=== PATIENT | male | born 1955 | race Caucasian/White ===

== ENCOUNTER 2017-02-01 10:37 | Observation (INO) | payer BC ==
[~2017-02-01] VITALS: Ht 175.3 cm; Wt 63.1 kg
[2017-02-01] MEDS ORDERED: BUPIVACAINE/EPINEPHRINE 0.25% PF 30 ML VIAL ONE ×2 (11:46→14:30)
[2017-02-01] MEDS ORDERED: LACTCAP8 PO (11:47)
[2017-02-01] MEDS ORDERED: FOLI400T PO (11:47)
[2017-02-01] MEDS ORDERED: MONT10TA4 PO (11:47)
[2017-02-01] MEDS ORDERED: ROFL1TAB2 PO (11:47)
[2017-02-01] MEDS ORDERED: OXYGENDME NAS.CANULA (11:47)
[2017-02-01] MEDS ORDERED: ALBUAER3 INH (11:47)
[2017-02-01] MEDS ORDERED: VITA200013 P-ARTICULR (11:47)
[2017-02-01] MEDS ORDERED: FLUT1SPR5 EACH NARE (11:47)
[2017-02-01] MEDS ORDERED: SYMB160A INH (11:47)
[2017-02-01] MEDS ORDERED: TIOT12.9 INH (11:47)
[2017-02-01] MEDS ORDERED: CENTCHW3 PO (11:47)
[2017-02-01] MEDS ORDERED: ATOR40TA16 PO (11:47)
[2017-02-01] MEDS ORDERED: ASPI81CH6 CHEW (11:47)
[2017-02-01] MEDS ORDERED: BUPR150T3 PO (11:47)
[2017-02-01] MEDS ORDERED: IPRASOL INH (11:47)
[2017-02-01] MEDS ORDERED: METO25TA3 PO (11:47)
[2017-02-01] MEDS ORDERED: POVIDONE IODINE 5% (ANTISEPSIS KIT) 4 APPLICATIONS EACH NARE PRN (12:00)
[2017-02-01] MEDS ORDERED: PROPOFOL 200 MG/20 ML AMP IV ONE (12:00)
[2017-02-01] MEDS ORDERED: CHLORHEXIDINE GLUCONATE 2 % 1 PACK (2 CLOTHS) TOPICAL PRN (12:00)
[2017-02-01] MEDS ORDERED: LIDOCAINE HCL 1% PF 5 ML SYRINGE OTHER ONE (12:00)
[2017-02-01] MEDS ORDERED: ceFAZolin 2 GM PREMIX 50 ML IV SCH (12:00)
[2017-02-01] MEDS ORDERED: LACTATED RINGER'S 1000 ML IV PRN (12:00)
[2017-02-01] MEDS ORDERED: ONDANSETRON HCL 4 MG/2 ML VIAL IV PUSH ONE (12:00)
[2017-02-01] MEDS ORDERED: PHENYLEPH/NS 1000 MCG/10 ML SYR IV ONE (12:00)
[2017-02-01] MEDS ORDERED: METOPROLOL TARTRATE 25 MG TAB PO PRN (12:00)
[2017-02-01] MEDS ORDERED: SODIUM CHLORID 0.9% 500 ML IV PRN (12:00)
[2017-02-01] MEDS ORDERED: DEXAMETHASONE SOD PHOS 4 MG/ML VIAL IV ONE (12:00)
[2017-02-01] MEDS ORDERED: GLYCOPYRROLATE 1 MG/5 ML SYRINGE IV PUSH ONE (12:00)
[2017-02-01] MEDS ORDERED: NEOSTIGMINE 5 MG/5 ML SYRINGE IV PUSH ONE (12:00)
[2017-02-01] MEDS ORDERED: ROCURONIUM INJ 50 MG/5 ML SYRINGE IV PUSH ONE (12:00)
[2017-02-01] MEDS ORDERED: ceFAZolin INJ 1,000 MG VIAL IV ONE (12:00)
[2017-02-01] MEDS ORDERED: ePHEDrine/NS 25 MG/5 ML SYRINGE IV ONE (12:00)
[2017-02-01] MEDS ORDERED: STERILE WATER FOR INJECTION 20 ML VIAL ONE (12:04)
[2017-02-01] MEDS ORDERED: methylPREDNISolone SOD SUCC 125 MG/2 ML VIAL ONE (12:30)
--- NOTE | 2017-02-01 13:39 | EKG ---
Date Performed: 02/01/2017 Time Performed: 11:26:23 PTAGE: 62 years EKG: Sinus rhythm POSSIBLE RIGHT ATRIAL ENLARGEMENT BORDERLINE ECG NO PREVIOUS TRACING DOCTOR: Kory Hannah Interpretating Date/Time 02/01/2017 13:39:03
[2017-02-01] MEDS ORDERED: DO NOT ADM ANY ANTICOAGULANT DRUGS PRN (15:03)
[2017-02-01] MEDS ORDERED: ONDANSETRON HCL 4 MG/2 ML VIAL IV PUSH PRN (15:15)
[2017-02-01] MEDS ORDERED: ACETAMINOPHEN/HYDROcodone 325 MG/5 MG TAB PO PRN (15:15)
[2017-02-01] MEDS ORDERED: ALBUTEROL SULFATE 90 MCG/ACT HFA 8 GM INHALER INH PRN (15:15)
[2017-02-01] MEDS ORDERED: SODIUM CHLORIDE 0.9% FLUSH 10 ML FLUSH IV FLUSH PRN (15:15)
[2017-02-01] MEDS ORDERED: Post-op Orders (for Pharmacy) XX ONE (15:15)
[2017-02-01] MEDS ORDERED: *MEPERIDINE 25 MG INJ VIAL PERIprocedural Use ONLY ONE (15:17)
[2017-02-01] MEDS ORDERED: RESP: ALBUTEROL 2.5 MG/IPRATROPIUM 0.5 MG NEB (PRN) NEB (15:30)
[2017-02-01] MEDS ORDERED: MORPHINE SULFATE 2 MG/ML INJ IV PUSH PRN (15:30)
[2017-02-01] MEDS: ATORVASTATIN 40 MG TAB PO SCH (15:30)
[2017-02-01] MEDS: SODIUM CHLOR 0.9% 1000 ML INJ 1,000 ML IV SCH (15:57)
[2017-02-01 16:00] VITALS: BP 98/70; PULSE 75; RESP 17; TEMP 95.6; O2SAT 95
[2017-02-01] MEDS: metroNIDAZOLE 500 MG INJ 100 ML IV SCH (16:00)
--- NOTE | 2017-02-01 16:31 | RADRPT ---
EXAM DATE/TIME: 02/01/2017 15:30 [place] COMPARISON: No previous studies available for comparison. INDICATIONS : Post op port placement MEDICAL HISTORY : Chronic obstructive pulmonary disease. Emphysema. MAC SURGICAL HISTORY : Right upper lobectomy ENCOUNTER: Initial ACUITY: 1 day PAIN SCORE: 0/10 LOCATION: Bilateral chest FINDINGS: Left chest port is present in good position. There is right suprahilar and apical pleuroparenchymal o pacity which is of undetermined chronicity. Lower right chest is clear. Slight blunting of the costop hrenic angle may represent small effusion. The left chest is clear. CONCLUSION: Right suprahilar and apical pleuroparenchymal opacity. No comparison exams. Han Cruz MD on February 01, 2017 at 16:27 Board Certified Radiologist. This report was verified electronically.
[2017-02-01] MEDS: METOPROLOL TARTRATE 25 MG TAB PO SCH (17:05)
[2017-02-01] MEDS: SODIUM CHLORIDE 0.9% FLUSH 10 ML FLUSH IV FLUSH SCH (19:33)
[2017-02-01 20:00] VITALS: BP 116/71; PULSE 74; RESP 20; TEMP 95.5; O2SAT 98
[2017-02-01] MEDS: MONTELUKAST SODIUM 10 MG TAB PO SCH (20:26)
[2017-02-01] MEDS: ACETAMINOPHEN/HYDROcodone 325 MG/5 MG TAB PO PRN (20:39)
--- NOTE | 2017-02-01 21:43 | PD.CONS ---
HPI Service [facility] Consult Requested By Primary Care Physician Annamarie Epps D.O. Diagnoses: History of Present Illness hx from patient and review of med records pt is admitted to sx service post G tube placement / mediport placement/ staging laparoscopy- medical team consulted for management of comorbid conditions had G tube placement today- planned sx no complications as far as he knows but has not had urinated since OR but no pain or distension G tube was placed for feeding prior to chemo and radiation to start next week hx of esophageal cancer- diagnosed a month ago- Dr Lobo [place] COPD- on home oxygen- supposed to be 24/ has sleep apnea- supposed to be on cpap - but does not use it denies any ROS apart from pain at mid epigastric or stomach area when he eats due to tumor has had prior swallowing issues requiring esophageal stretching Review of Systems Except as stated in HPI: all other systems reviewed are Neg Past Family Social History Allergies: Coded Allergies: doxycycline (Verified Allergy, Intermediate, Rash, 02/01/17) Past Medical History HTN G tube was placed for feeding prior to chemo and radiation to start next week hx of esophageal cancer- diagnosed a month ago- Dr Lobo [place] esophageal strictures prior - requiring stretching 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 Past Surgical History egd colonoscopy benign tumor of slaivary gland removed hydrocele right lobectomy Family History adopted, does not know family hx Social History quit smoking a couple of years ago no etoh abuse no drugs lives with , still driving Physical Exam Vital Signs Vital Signs Date Time Temp Pulse Resp B/P (MAP) Pulse Ox O2 Delivery O2 Flow Rate FiO2 02/01/17 16:10 97.5 76 20 96 Nasal Cannula 2 02/01/17 16:00 75 20 110/70 (83) 96 02/01/17 16:00 95.6 75 17 98/70 (79) 95 02/01/17 15:45 77 18 111/70 (84) 96 02/01/17 15:30 77 20 127/76 (93) 96 Nasal Cannula 2 02/01/17 15:12 97.1 80 20 129/69 (89) 100 Nasal Cannula 2 02/01/17 11:55 98.1 78 20 105/75 (85) 95 Physical Exam GENERAL: This is a well-nourished, well-developed patient, in no apparent distress. very pleasant gentleman SKIN: No rashes, ecchymoses or lesions. Cool and dry. HEAD: Atraumatic. Normocephalic. No temporal or scalp tenderness. EYES: No scleral icterus. No injection or drainage. ENT: Nose without bleeding, purulent drainage or septal hematoma. Airway patent. NECK: Trachea midline. No JVD . Supple, nontender, no meningeal signs. CARDIOVASCULAR: Regular rate and rhythm without murmurs, gallops, or rubs. RESPIRATORY: Clear to auscultation. Breath sounds equal bilaterally. No wheezes , rales, or rhonchi. GASTROINTESTINAL: Abdomen soft, non-tender, nondistended. No guarding. G ti MUSCULOSKELETAL: Extremities without clubbing, cyanosis, or edema. No joint tenderness, effusion, or edema noted. No calf tenderness. Negative Homans sign bilaterally. NEUROLOGICAL: Awake and alert. Cranial nerves II through XII intact. Motor and sensory grossly within normal limits. Five out of 5 muscle strength in all muscle groups. Normal speech. Laboratory none available on emr Imaging Last 48 hours Impressions Chest X-Ray 02/01/17 0000 Signed Impressions: Service Date/Time: Wednesday, February 01, 2017 15:30 - CONCLUSION: Right suprahilar and apical pleuroparenchymal opacity. No comparison exams. 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 Plan: home meds have been restarted by sx team meds reviewed, agree with above, pt has home med list with him for now, COPD stable ct oxygen nebs bladder scan if pt has not made urine in next few hrs and if symptomatic with pain or distension dvt prophylaxis with scd Discussed Condition With patient Diana Ambrosio MD Feb 01, 2017 21:43
[2017-02-01] MEDS: BUDESONIDE-FORMOTEROL 160/4.5 MCG INHALER INH SCH (21:58)
[2017-02-02] VITALS: BP 118/71; PULSE 85; RESP 20; TEMP 95.9; O2SAT 98
[2017-02-02] MEDS: metroNIDAZOLE 500 MG INJ 100 ML IV SCH ×2 (00:56→08:01)
[2017-02-02] MEDS: SODIUM CHLOR 0.9% 1000 ML INJ 1,000 ML IV SCH (04:30)
[2017-02-02] MEDS: ACETAMINOPHEN/HYDROcodone 325 MG/5 MG TAB PO PRN ×4 (04:33→20:14)
--- NOTE | 2017-02-02 07:11 | MP ---
cc: PRASANTH FRAGA DATE OF SURGERY 02/01/2017 PREOPERATIVE DIAGNOSES 1. GE junction tumor. 2. COPD. POSTOPERATIVE DIAGNOSES 1. GE junction tumor. 2. COPD. PROCEDURE 1. Left subclavian vein [id number] placement. 1. Intraoperative interpretation of fluoroscopic images by MD. 2. Diagnostic and staging laparoscopy. 3. Laparoscopic gastrostomy tube placement. ATTENDING SURGEON MD Nena INFORMATION SYSTEMS AUDITOR Staff. ANESTHESIA General and local anesthetic. BLOOD LOSS Less than 25 cc. COMPLICATIONS None. FINDINGS 1. Tip of the catheter in the atriocaval junction on fluoroscopy. 2. No evidence of carcinomatosis or metastatic disease on staging laparoscopy. 3. Gastrostomy tube in the antrum close to the lesser curve and incisura, placed without difficulty. INDICATIONS FOR PROCEDURE The patient is a 61-year-old male recently diagnosed with GE junction tumor. The patient has difficulty eating and is losing weight and requires nutritional support. The patient also is undergoing definitive chemoradiation for treatment due to high risk for surgery and severe COPD. The patient requires Ulepcr-P-[id number] placement for chemotherapy. The risks, benefits and alternatives were discussed with the patient prior to the procedure and the patient agreed to undergo the procedure. PROCEDURE The patient was taken to the operating room, placed in the supine position, placed under general endotracheal anesthesia. The patient's chest wall and abdomen were shaved, prepped and draped in sterile fashion. Time-out was performed. A left subclavian vein was accessed on first attempt with the 18-gauge finder needle provided in the Bard 8-Martiniquais PowerPort kit. We advanced the wire without difficulty and this was confirmed to be in the venous system on fluoroscopy. We extended the stick site into a small 2.5-cm horizontal incision and undermined the skin making a subcutaneous pocket. We were able to use the dilator breakaway introducer assembly to introduce the catheter in the venous system and remove the wire. The tip was confirmed to be in good position on fluoroscopy and this was cut and assembled according to maxillofacial prosthetics dentist's recommendations. We aspirated blood through this readily and flushed with heparinized saline. This was placed in the pocket without kinking and the pocket was closed with 4-0 Monocryl and Dermabond. As this point in time, we turned our attention towards the diagnostic laparoscopy. We entered the abdomen through Daphne technique just above the umbilicus. We used local anesthetic at this site as at all port sites. We surveyed the abdomen and took multiple pictures. There was essentially no abnormality; even the tumor was not readily seen. At this point time, we placed a second 5 port in the left upper quadrant under direct visualization. We were then able to grasp the stomach and we laparoscopically placed the G-tube using the laparoscopic kit using four T-bar sutures placed under direct visualization with the laparoscope. We placed these at 12, 3, 6 and 9 o'clock positions. This was at the area of the incisura in the antrum away from the right gastroepiploic and away from the greater curve. Once we had placed these T-bars in place in good position, we placed a needle percutaneously at this center portion of the T-bars in the center portion of the gastric wall. We passed the wire without difficulty into the gastric lumen. We dilated this tract and placed a 16-Martiniquais G-tube into the gastric lumen under direct visualization. We placed 5 cc of saline in the balloon and tied down the T-bars completely, standing the stomach up against the abdominal wall. We then flushed the G tube. We had good gastric contents, placed this to drainage. We then removed all ports under visualization of the laparoscope and expressed pneumoperitoneum. We closed the Daphne entry site with a [id number] 0 Vicryl suture. We closed the skin with 4-0 Monocryl and Dermabond. The patient tolerated the procedure well. No apparent complications. All counts were correct and I was present throughout the entire procedure. MD CYNDY Shah/CATHERINE /3:05 PM /6:34 AM
[2017-02-02 08:00] VITALS: BP 108/66; PULSE 82; RESP 17; TEMP 97.1; O2SAT 94
[2017-02-02] MEDS: BUDESONIDE-FORMOTEROL 160/4.5 MCG INHALER INH SCH ×2 (08:00→20:14)
[2017-02-02] MEDS: ATORVASTATIN 40 MG TAB PO SCH (08:01)
[2017-02-02] MEDS: SODIUM CHLORIDE 0.9% FLUSH 10 ML FLUSH IV FLUSH SCH ×2 (08:01→20:14)
[2017-02-02] MEDS: ROFLUMILAST 500 MCG TAB PO SCH (08:01)
[2017-02-02] MEDS: buPROPion HCL 150 MG SUSTAINED RELEASE TAB PO SCH (08:01)
[2017-02-02] MEDS: METOPROLOL TARTRATE 25 MG TAB PO SCH ×3 (08:09→16:39)
[2017-02-02] MEDS: FLUTICASONE PROPIONATE 50 MCG/ACT 16 GM NASAL SPRAY NASAL SCH (08:09)
[2017-02-02] MEDS ORDERED: SPIRIVA RESPIMAT INH SCH (09:00)
--- NOTE | 2017-02-02 10:04 | HHI.FF ---
Face to Face Verification Diagnosis: (1) GE junction carcinoma Home Health Nursing Order: Wound care and dressing changes Instructions: Routine G tube care--- Bolus TF via G tube Vital 1.5- 240 cc x 5 times daily ( recommend 0800; 1100, 1400, 1700, 2000) with 30 ml water flushes before and after bolus feedings; 250 free water flushes Q8 Family and patient teaching Okay to have full liquids I have seen patient Jeramie Barajas on 02/02/17. My clinical findings support the need for the requested home health care services because: Limited ability to care for self High risk of falls I certify that my clinical findings support that this patient is homebound because: Post-op weakness Chandni Hernandez Feb 02, 2017 10:04
[2017-02-02] MEDS: TAMSULOSIN HCL 0.4 MG CAP PO SCH (10:52)
[2017-02-02 12:00] VITALS: BP 109/67; PULSE 78; RESP 18; TEMP 98.2; O2SAT 98
--- NOTE | 2017-02-02 13:35 | HHI.PR ---
Subjective Remarks Resting in bed, abdominal pain 4 out of 10 no nausea no diarrhea he started on full liquid diet today Objective Vitals Vital Signs Date Time Temp Pulse Resp B/P (MAP) Pulse Ox O2 Delivery O2 Flow Rate FiO2 02/02/17 12:00 98.2 78 18 109/67 (81) 98 02/02/17 10:48 20 02/02/17 08:00 97.1 82 17 108/66 (80) 94 02/02/17 00:00 95.9 85 20 118/71 (87) 98 02/01/17 20:00 95.5 74 20 116/71 (86) 98 02/01/17 16:10 97.5 76 20 96 Nasal Cannula 2 02/01/17 16:00 75 20 110/70 (83) 96 02/01/17 16:00 95.6 75 17 98/70 (79) 95 02/01/17 15:45 77 18 111/70 (84) 96 02/01/17 15:30 77 20 127/76 (93) 96 Nasal Cannula 2 02/01/17 15:12 97.1 80 20 129/69 (89) 100 Nasal Cannula 2 I/O 02/01/17 02/01/17 02/01/17 02/02/17 02/02/17 02/02/17 06:59 14:59 22:59 06:59 14:59 22:59 Intake Total 1000 ml 340 ml 340 ml Output Total 25 ml 0 ml 1975 ml Balance 975 ml 340 ml -1635 ml Intake Oral 240 ml 240 ml IV Total 100 ml 100 ml Other 1000 ml Output Urine Total 1600 ml Drainage Total 0 ml 375 ml Estimated Blood Loss 25 ml Bladder Scan Volume Amount 745 ml # Voids 1 Objective Remarks GENERAL: This is a well-nourished, well-developed patient, in no apparent distress. SKIN: No rashes, warm and dry HEAD: Atraumatic. Normocephalic. EYES: Pupils equal round and reactive. Extraocular motions intact. No scleral icterus. ENT: Nose without bleeding, or drainage, Airway patent. NECK: Trachea midline. Supple CARDIOVASCULAR: Regular rate and rhythm without murmurs, gallops, or rubs. RESPIRATORY: Fair air entry bilaterally. No wheezes, rales, or rhonchi. GASTROINTESTINAL: Abdomen soft, mildly tender to palpation, nondistended. Positive bowel sounds MUSCULOSKELETAL: Extremities without clubbing, cyanosis, or edema. Pedal pulses appreciated NEUROLOGICAL: Awake and alert. Moves all extremity. 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 Plan: home meds have been restarted by sx team meds reviewed, agree with above, pt has home med list with him for now, COPD stable ct oxygen nebs bladder scan if pt has not made urine in next few hrs and if symptomatic with pain or distension Discharge Planning Oncology following Colleen Louis MD Feb 02, 2017 13:35
[2017-02-02] MEDS ORDERED: HYDR-3516 PO (15:58)
[2017-02-02 16:00] VITALS: BP 101/62; PULSE 84; RESP 18; TEMP 97.4; O2SAT 95
[2017-02-02 20:00] VITALS: BP 103/75; PULSE 103; RESP 20; TEMP 97.2; O2SAT 96
[2017-02-02] MEDS: MONTELUKAST SODIUM 10 MG TAB PO SCH (20:14)
[2017-02-02 21:47] VITALS: O2SAT 95
[2017-02-03] VITALS: BP_SYST 100; BP_SYST 106; BP_DIAS 59; BP_DIAS 65; PULSE 108; PULSE 92; RESP 17; RESP 21; TEMP 96.8; TEMP 97.7; O2SAT 96
[2017-02-03] MEDS: ACETAMINOPHEN/HYDROcodone 325 MG/5 MG TAB PO PRN ×2 (04:50→08:47)
[2017-02-03 08:00] VITALS: BP 106/69; PULSE 85; RESP 16; TEMP 97.7; O2SAT 97
[2017-02-03] MEDS: buPROPion HCL 150 MG SUSTAINED RELEASE TAB PO SCH (08:46)
[2017-02-03] MEDS: ROFLUMILAST 500 MCG TAB PO SCH (08:47)
[2017-02-03] MEDS: TAMSULOSIN HCL 0.4 MG CAP PO SCH (08:47)
[2017-02-03] MEDS: ATORVASTATIN 40 MG TAB PO SCH (08:47)
[2017-02-03] MEDS: BUDESONIDE-FORMOTEROL 160/4.5 MCG INHALER INH SCH (08:49)
[2017-02-03] MEDS: SODIUM CHLORIDE 0.9% FLUSH 10 ML FLUSH IV FLUSH SCH (08:50)
[2017-02-03] MEDS: METOPROLOL TARTRATE 25 MG TAB PO SCH (08:53)
[2017-02-03] MEDS: FLUTICASONE PROPIONATE 50 MCG/ACT 16 GM NASAL SPRAY NASAL SCH (08:53)
[2017-02-03 08:59] VITALS: O2SAT 97
[2017-02-03] MEDS ORDERED: TAMS5CAP PO (09:33)
--- NOTE | 2017-02-03 09:36 | HHI.DS ---
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 Diagnosis: Principal Procedures See hospital course Brief History - From Admission hx from patient and review of med records pt is admitted to sx service post G tube placement / mediport placement/ staging laparoscopy- medical team consulted for management of comorbid conditions had G tube placement today- planned sx no complications as far as he knows but has not had urinated since OR but no pain or distension G tube was placed for feeding prior to chemo and radiation to start next week hx of esophageal cancer- diagnosed a month ago- Dr Henley , Dr Diamond COPD- on home oxygen- supposed to be 24/7 has sleep apnea- supposed to be on cpap - but does not use it denies any ROS apart from pain at mid epigastric or stomach area when he eats due to tumor has had prior swallowing issues requiring esophageal stretching Imaging Last Impressions Chest X-Ray 02/01/17 0000 Signed Impressions: Service Date/Time: Wednesday, February 01, 2017 15:30 - CONCLUSION: Right suprahilar and apical pleuroparenchymal opacity. No comparison exams. Han Cruz MD PE at Discharge GENERAL: This is a well-nourished, well-developed patient, in no apparent distress. SKIN: No rashes, warm and dry HEAD: Atraumatic. Normocephalic. EYES: Pupils equal round and reactive. Extraocular motions intact. No scleral icterus. ENT: Nose without bleeding, or drainage, Airway patent. NECK: Trachea midline. Supple CARDIOVASCULAR: Regular rate and rhythm without murmurs, gallops, or rubs. RESPIRATORY: Fair air entry bilaterally. No wheezes, rales, or rhonchi. GASTROINTESTINAL: Abdomen soft, mildly tender to palpation, nondistended. Positive bowel sounds MUSCULOSKELETAL: Extremities without clubbing, cyanosis, or edema. Pedal pulses appreciated NEUROLOGICAL: Awake and alert. Moves all extremity. Normal speech.no focal neurological deficit Pt update on day of discharge Follow-up for port placement. Patient is no complaints. He is very anxious to go home. He denies any pain. Denies any shortness of breathing, cough, chest pain, palpitation, lightheadedness dizziness. I went over patient's chest x- ray in regards to the findings and he stated that he is aware of that and that he had a right upper lobectomy secondary to MAC. Hospital Course This is a 62-year-old male who presented for left subclavian mediport placement , staging laparoscopy and laparoscopic G tube placement on 02/01/17- for feeding - chemo and radiation to start next week due to diagnosis of esophageal cancer that was diagnosed one month ago. Patient had no complications and did well during his hospital course. He was also put on Flomax due to urinary retention would which helped his symptoms. Pt Condition on Discharge: Stable Discharge Disposition: Disch w/ Home Health Serv Discharge Time: <= 30 minutes Discharge Instructions DIET: Follow Instructions for: Full Liquid Diet Activities you can perform: Regular-No Restrictions Follow up Referrals: Appointment for Follow Up Oncology - 1 Week PCP Follow-up - 1 Week PCP Follow-up Surgical - 02/09/17 with Buzz Barrett MD Appt set for Feb 09 at 11AM Surgical New Medications: Hydrocodone/Acetaminophen (Hydrocodone-Acetamin 5-325 mg) 5 Mg-325 Mg Tablet 1 TAB PO Q4H PRN for pain, #25 TAB Tamsulosin (Flomax) 0.4 Mg Cap 0.4 MG PO DAILY for urinary retention, #30 CAP 0 Refills Continued Medications: Albuterol Sulfate (Proair Hfa) 90 Mcg Hfa.aer.ad 2 PUFF INH Q6HR PRN for SHORTNESS OF BREATH Aspirin (Aspirin Low Dose) 81 Mg Chew 81 MG CHEW DAILY, TAB 0 Refills Atorvastatin (Atorvastatin) 40 Mg Tab 40 MG PO DAILY for Cholesterol Management, #30 TAB 0 Refills Budesonide-Formoterol Inh (Symbicort Inh) 160-4.5 Mcg/Act Aero 1 PUFF INH Q12HR, #1 INHALER 0 Refills Bupropion HCl ER 24 HR (Bupropion HCl ER 24 HR) 150 Mg Tab 150 MG PO DAILY for Control Depression, TAB 0 Refills Cholecalciferol (Vitamin D) 2,000 Unit Cap 2 TAB P-ARTICULR DAILY Fluticasone Nasal [place] (Flonase Nasal [place]) 50 Mcg/Act [place] 50 MCG EACH NARE DAILY for Allergies, #1 BOTTLE 0 Refills Folic Acid (Folic Acid) 0.4 Mg Tab 400 MCG PO DAILY for Nutritional Supplement, TAB 0 Refills Ipratropium-Albuterol Neb (Duoneb) 0.5-2.5 Mg/3 Ml Neb 1 NEBULE INH Q6HR NEB PRN for SHORTNESS OF BREATH, #120 NEBULE 0 Refills Lactobacillus Acidophilus (Probiotic) 10 Billion Cell Cap 1 CAP PO DAILY for Nutritional Supplement, #90 CAP 0 Refills Metoprolol Tartrate (Metoprolol Tartrate) 25 Mg Tab 25 MG PO TID, #60 TAB 0 Refills Montelukast (Montelukast) 10 Mg Tab 10 MG PO HS, #30 TAB 0 Refills Multiple Vitamins W/ Minerals (Centrum Silver) 400 Mcg-250 Mcg Chw 1 TAB PO DAILY Oxygen (O2) (Oxygen (O2)) Device LITER MELVIN.CANULA CONTINUOUS for Prevent Hypoxemia, #2 Oxygen Concentrator Portable Gaseous 2 L/min via Nasal Canula Continuous For 99 months Roflumilast (Daliresp) 500 Mcg Tab 500 MCG PO DAILY for COPD, #30 TAB 0 Refills Tiotropium Inh (Spiriva Respimat Inh) 2.5 Mcg/Act Aero 2 PUFF INH DAILY for COPD, #1 INHALER 0 Refills 2.5 mcg = 1 inhalation Jossie Austin MD Feb 03, 2017 09:36
== END 2017-02-03 12:00 | disposition home or self-care (01) ==
LOC: HSDC 10:37 → N07A 16:32 → HSDC 17:30 → N07A 17:34
PROVIDERS: ADMIT Family Medicine; ATTEND Family Medicine
DX: C16.0 Malignant neoplasm of cardia (principal); K22.2 Esophageal obstruction; R63.3 Feeding difficulties; R33.9 Retention of urine, unspecified; I10 Essential (primary) hypertension; K66.8 Other specified disorders of peritoneum; J44.0 Chronic obstructive pulmonary disease with (acute) lower respiratory infection; G47.30 Sleep apnea, unspecified; Z99.81 Dependence on supplemental oxygen
CPT/HCPCS: 00790; 36561; 43653; 71010; 77001; 93005; 96365; 96366; C1788; G0378; J0690; J1100; J2175; J2370; J2405; J2710; J2930; J7030; J7120

== ENCOUNTER 2018-01-01 13:21 | Inpatient (IN) ==
[2018-01-01] MEDS ORDERED: Sod Chloride 0.9% Inj 1,000 ML IV.SIG SCH (14:30)
--- NOTE | 2018-01-01 14:41 | ED ---
HPI General Chief complaint: Nausea/Vomiting/Diarrhea Stated complaint: Bleeding/Stomach Complaint Time Seen by Provider: 01/01/18 13:55 Source: patient and family Mode of arrival: wheelchair Limitations: no limitations History of Present Illness HPI narrative: Mr Barajas is a 62 year old male who presents with black tarry stools since last night. He states he had a bowel movement at midnight last night and again at 1am and they were both very dark. He then called his oncologist and was sent to the ED. The patient has esophageal cancer that has spread to his lungs, liver, and stomach. He also complains of a constant 6-7/10 abdominal pain that occasionally becomes stabbing, that has been present since he was started on Percocet. The patient also complains of occasional lightheadedness, decreased appetite, chronic cough and chronic SOB. He denies constipation or urinary frequency, urgency, or hematuria. The patient's PMH is positive for esophageal cancer with metastasis, previous falls due, COPD (home O2), MAC with lobectomy, and a PE 1 month ago. The patient is on Eloquis for the PE and started a new chemotherapy injection this past Monday. The patient is a former smoker since age 13, having quit 4 years ago. He denies alcohol use. He used medical marijuana for his cancer related pain while living in [place] but has not used this since moving to [place], and denies other drug use. Related Data Home Medications Medication Instructions Recorded Confirmed apixaban [Eliquis] 5 mg PO BID 01/01/18 01/01/18 atorvastatin 40 mg PO DAILY 01/01/18 01/01/18 budesonide-formoterol [Symbicort] 2 puff INHALATION BID 01/01/18 01/01/18 cholecalciferol (vitamin D3) 4,000 unit PO DAILY 01/01/18 01/01/18 [Vitamin D3] diltiazem HCl [Cardizem] 120 mg PO DAILY 01/01/18 01/01/18 folic acid 400 mcg PO DAILY 01/01/18 01/01/18 ipratropium-albuterol 3 ml INHALATION Q6-8H PRN 01/01/18 01/01/18 metoprolol tartrate 25 mg PO BID 01/01/18 01/01/18 montelukast 10 mg PO QPM 01/01/18 01/01/18 autnbbem-yrt-IZ-lycopen-lutein 1 tab PO DAILY 01/01/18 01/01/18 [Centrum Silver Men] oxycodone-acetaminophen 1 tab PO Q4H PRN 01/01/18 01/01/18 ramucirumab 8 mg/kg IV Q2W 01/01/18 01/01/18 tiotropium bromide [Spiriva with 2.5 mg INHALATION DAILY 01/01/18 01/01/18 HandiHaler] Allergies Allergy/AdvReac Type Severity Reaction Status Date / Time doxycycline Allergy Intermediate Rash Verified 01/01/18 14:18 [facility] Medical History Medical History Paroxysmal A-fib (Acute) Chronic respiratory failure with hypoxia, on home O2 therapy (Acute) Adenocarcinoma of gastroesophageal junction (Acute) History of jejunostomy tube placement (Acute) Hydrocele (Acute) Mycobacterium avium complex (Acute) 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 (Acute) COPD (chronic obstructive pulmonary disease) (Acute) Cancer (Acute) HTN (hypertension) (Acute) Pulmonary emboli (Acute) Surgical History Surgical History History of lobectomy of lung (Acute) Social History Social History Substance History: Active Abuse Second Hand Smoke Exposure: No Smoking Status: Former smoker How Often Do You Have a Drink Containing Alcohol: Monthly or less Recent Travel in [facility] within the Last 8 Weeks: No Recent Out of Country Travel within the Last 8 Weeks: No Substance Abuse Detail Marijuana: Substance Use Status: Active Route Used Substance Abuse: Inhalation Substance Abuse Comment: claims medical marijuana Immunization History Tetanus Immunization: <5 Years Exam Narrative Exam Narrative: GENERAL: Patient is a thin male appearing older than stated age, but in NAD. SKIN: Warm and dry. HEAD: Atraumatic. Normocephalic. EYES: Pupils equal and round. No scleral icterus. No injection or drainage. ENT: No nasal bleeding or discharge. Mucous membranes pink and moist. NECK: Trachea midline. No JVD. CARDIOVASCULAR: Regular rate and rhythm. RESPIRATORY: No accessory muscle use. Rhonchi present in all lung rivas. Breath sounds equal bilaterally. GASTROINTESTINAL: Abdomen soft and nondistended. Pain with palpation diffusely. Hepatic and splenic margins not palpable. MUSCULOSKELETAL: Extremities without clubbing, cyanosis, or edema. No obvious deformities. NEUROLOGICAL: Awake and alert. No obvious cranial nerve deficits. Motor grossly within normal limits. Five out of 5 muscle strength in the arms and legs. Normal speech. PSYCHIATRIC: Appropriate mood and affect; insight and judgment normal. Course Initial Documented Vital Signs Temperature 97.5 F L 01/01/18 13:34 Pulse Rate 103 H 01/01/18 13:34 Respiratory Rate 16 01/01/18 13:34 Blood Pressure 108/64 01/01/18 13:34 Pulse Oximetry 99 01/01/18 13:34 Last Documented Vital Signs Temperature 97.4 F L 01/02/18 04:00 Pulse Rate 81 01/02/18 04:00 Respiratory Rate 20 01/02/18 04:00 Blood Pressure 99/57 L 01/02/18 04:00 Pulse Oximetry 97 01/02/18 04:00 Medical Decision Making MDM Narrative Medical decision making narrative: 62 yo male here for evaluation of black stools. Patient was properly examined and was found to have signs and symptoms consistent appears to be GI bleed. Labs and imaging were ordered. CT scans were ordered as patient does have a history of PE and at this appears to be slightly tachypneic and hypoxic even with oxygen. Labs and imaging were done and were essentially unremarkable for PE. Patient does have positive Hemoccult. Patient is not anemic and at this time I do not see any need for blood transfusion but because the patient does take Eliquis and has a significant history of cancer do recommend admission for further evaluation and treatment of this. Patient agrees with this plan. Case discussed with my attending Dr. Orozco who was made aware of findings and agrees the patient is to be admitted. KT who agrees with admission to his service and He wants me to speak with GI. This was done by me. Medical Screen Exam Complete: Yes Emergency Medical Condition: Yes Differential Diagnosis Differential Diagnosis: PE versus GI bleed versus acute abdomen versus metastatic disease Medical Records Medical records reviewed: Yes I reviewed the patient's medical records. Lab Data Lab results reviewed: Yes I reviewed the patient's lab results. Result diagrams: 01/01/18 21:38 01/01/18 14:15 Lab Results 01/01/18 01/01/18 01/01/18 Range/Units 14:15 14:15 14:15 WBC 14.4 H (4.0-11.0) th/mm3 RBC 3.48 L (4.50-5.90) mil/mm3 Hgb 11.6 L (13.0-17.0) gm/dL Hct 34.7 L (39.0-51.0) % MCV 99.6 (80.0-100.0) fL MCH 33.3 (27.0-34.0) pg MCHC 33.5 (32.0-36.0) % RDW 16.1 (11.6-17.2) % Plt Count 347 (150-450) th/mm3 MPV 7.9 (7.0-11.0) fL Prelim Diff (Auto) Slide review pending Neut % (Auto) 81.3 H (16.0-70.0) % Lymph % (Auto) 4.4 L (9.0-44.0) % [place] % (Auto) 12.8 H (0.0-8.0) % Eos % (Auto) 0.1 (0.0-4.0) % Baso % (Auto) 1.4 (0.0-2.0) % Neut # (Auto) 11.7 H (1.8-7.7) th/mm3 Lymph # (Auto) 0.6 L (1.0-4.8) th/mm3 [place] # (Auto) 1.8 H (0.0-0.9) th/mm3 Eos # (Auto) 0.0 (0.0-0.4) th/mm3 Baso # (Auto) 0.2 (0.0-0.2) th/mm3 WBC Differential Manual diff final Seg Neuts % (Manual) 87 H (16-70) % Lymphocytes % (Manual) 1 L (9-44) % Monocytes % (Manual) 11 H (0-8) % Basophils % (Manual) 1 (0-2) % Abs Neuts (Manual) 12.5 H (1.8-7.7) th/mm3 Differential Comment . Toxic Vacuolation Present H (None) Platelet Estimate Normal (Normal) Platelet Morphology Normal (Normal) RBC Morphology Normal (Normal) PT (9.8-11.6) sec INR Ratio APTT (23.4-31.7) sec Sodium 135 L (136-145) meq/L Potassium 4.3 (3.5-5.1) meq/L Chloride 97 L (98-107) meq/L Carbon Dioxide 29.8 (21.0-32.0) meq/L Anion Gap 8 (5-15) meq/L BUN 30 H (7-18) mg/dL Creatinine 0.64 (0.60-1.30) mg/dL Estimated GFR Greater than 89 (>89) mL/min Random Glucose 102 (74-106) mg/dL Calcium 9.2 (8.5-10.1) mg/dL Magnesium 2.0 (1.5-2.5) mg/dL Total Bilirubin 0.4 (0.2-1.0) mg/dL AST 25 (15-37) U/L ALT 17 (12-78) U/L Alkaline Phosphatase 165 H (45-117) U/L Total Protein 6.7 (6.4-8.2) g/dL Albumin 2.4 L (3.4-5.0) g/dL Urine Color (Yellw/Straw) Urine Clarity (Clear) Urine pH (5.0-8.5) Ur Specific [place] (1.002-1.035) Urine Protein (Neg-Trace) mg/dL Urine Glucose (UA) (Negative) mg/dL Urine Ketones (Negative) mg/dL Urine Occult Blood (Negative) Urine Nitrate (Negative) Urine Bilirubin (Negative) Urine Urobilinogen (Less than 2) mg/dL Ur Leukocyte Esterase (Negative) Urine RBC (0-3) /hpf Urine WBC (0-5) /hpf Ur Squamous Epith Cells (0-5) /hpf Urine Bacteria (None) /hpf Hyaline Casts (0-3) /lpf Urine Mucus (Occasional) /lpf Micro UA Comment Ur Microscopic Review Urine Culture Comments Blood Type A Positive Blood Type Recheck Required Antibody Screen Negative 01/01/18 01/01/18 01/01/18 Range/Units 15:00 16:38 21:38 WBC (4.0-11.0) th/mm3 RBC (4.50-5.90) mil/mm3 Hgb 9.5 L D (13.0-17.0) gm/dL Hct (39.0-51.0) % MCV (80.0-100.0) fL MCH (27.0-34.0) pg MCHC (32.0-36.0) % RDW (11.6-17.2) % Plt Count (150-450) th/mm3 MPV (7.0-11.0) fL Prelim Diff (Auto) Neut % (Auto) (16.0-70.0) % Lymph % (Auto) (9.0-44.0) % [place] % (Auto) (0.0-8.0) % Eos % (Auto) (0.0-4.0) % Baso % (Auto) (0.0-2.0) % Neut # (Auto) (1.8-7.7) th/mm3 Lymph # (Auto) (1.0-4.8) th/mm3 [place] # (Auto) (0.0-0.9) th/mm3 Eos # (Auto) (0.0-0.4) th/mm3 Baso # (Auto) (0.0-0.2) th/mm3 WBC Differential Seg Neuts % (Manual) (16-70) % Lymphocytes % (Manual) (9-44) % Monocytes % (Manual) (0-8) % Basophils % (Manual) (0-2) % Abs Neuts (Manual) (1.8-7.7) th/mm3 Differential Comment Toxic Vacuolation (None) Platelet Estimate (Normal) Platelet Morphology (Normal) RBC Morphology (Normal) PT 11.6 (9.8-11.6) sec INR 1.1 Ratio APTT 31.3 (23.4-31.7) sec Sodium (136-145) meq/L Potassium (3.5-5.1) meq/L Chloride (98-107) meq/L Carbon Dioxide (21.0-32.0) meq/L Anion Gap (5-15) meq/L BUN (7-18) mg/dL Creatinine (0.60-1.30) mg/dL Estimated GFR (>89) mL/min Random Glucose (74-106) mg/dL Calcium (8.5-10.1) mg/dL Magnesium (1.5-2.5) mg/dL Total Bilirubin (0.2-1.0) mg/dL AST (15-37) U/L ALT (12-78) U/L Alkaline Phosphatase (45-117) U/L Total Protein (6.4-8.2) g/dL Albumin (3.4-5.0) g/dL Urine Color Yellow (Yellw/Straw) Urine Clarity Hazy H (Clear) Urine pH 5.0 (5.0-8.5) Ur Specific [place] 1.027 (1.002-1.035) Urine Protein 30 H (Neg-Trace) mg/dL Urine Glucose (UA) Negative (Negative) mg/dL Urine Ketones Trace H (Negative) mg/dL Urine Occult Blood Negative (Negative) Urine Nitrate Negative (Negative) Urine Bilirubin Negative (Negative) Urine Urobilinogen Less than 2 (Less than 2) mg/dL Ur Leukocyte Esterase Negative (Negative) Urine RBC Less than 1 (0-3) /hpf Urine WBC 4 (0-5) /hpf Ur Squamous Epith Cells 1 (0-5) /hpf Urine Bacteria Occasional H (None) /hpf Hyaline Casts 7 (0-3) /lpf Urine Mucus Many H (Occasional) /lpf Micro UA Comment Culture not ind Ur Microscopic Review Not Reportable Urine Culture Comments Culture not ind Blood Type Blood Type Recheck Antibody Screen Imaging Data Attestation: I personally reviewed and interpreted this imaging study as follows : Radiologist's impression: Abdomen/Pelvis CT 01/01/18 14:23 CONCLUSION: 1. Low density liver lesions which were not identified previously 2. Ileus bowel gas pattern Chest X-Ray 01/01/18 14:24 CONCLUSION: New areas of infiltrate in the lung bases when compared to previous of 2017. This would be concerning for pneumonia. Chest CTA 01/01/18 14:45 CONCLUSION: 1. No CT evidence for pulmonary artery embolism as questioned. 2. Postsurgical features of prior right lobectomy with associated volume loss and mediastinal shift to the right. 3. Prominent centrilobular emphysema throughout the left lung and residual right lung. 4. Stable large cavitary lesion in the right lung apex with slightly improved peripheral lateral pleural-based mass in the right midlung measuring 4.3 x 1.4 cm. 5. New posterior pleural-based right lower lobe mass measuring 2.8 x 1.7 cm. 6. Enlarging primarily anterior pericardial effusion now measuring 1.9 cm. ECG Data Attestation: I personally reviewed and interpreted this ECG as follows: Interpretation: EKG shows sinus rhythm with no sign of acute ichemia or arrhythmia read by me and attending. Discharge Plan Discharge Disposition Patient Disposition: Still Patient Discharge Details Diagnosis: Acute GI bleeding, Metastatic disease Physicians Team ED Provider: Sandi Way ED Midlevel Provider: Stas Sherwood Primary Care Provider: Annamarie Epps Attending Provider: Janusz Tapia Other Providers: Josie Le ; Karla Baca ED Status: Left Department Discharge Information Discharge Date/Time: 01/01/18 17:45 Addendum entered and electronically signed by LENI Amaral 01/01/18 16:47 : Rectal exam done with female nurse present. No sign of active bleed. No red blood but tarry stools. Hemocult done and turned positive blue. Addendum entered and electronically signed by LENI Amaral 01/01/18 16:51 : DR trinidad from GI agrees to see patient during admission.
[2018-01-01 14:42] LABS: Baso # (Auto) 0.2 th/mm3 (0.0-0.2); Baso % (Auto) 1.4 % (0.0-2.0); Eos % (Auto) 0.1 % (0.0-4.0); Hematocrit 34.7 % (39.0-51.0); Hemoglobin 11.6 gm/dL (13.0-17.0); Lymph # (Auto) 0.6 th/mm3 (1.0-4.8); Lymph % (Auto) 4.4 % (9.0-44.0); Mean Corpuscular HGB Conc 33.5 % (32.0-36.0); Mean Corpuscular Hemoglobin 33.3 pg (27.0-34.0); Mean Corpuscular Volume 99.6 fL (80.0-100.0); Mean Platelet Volume 7.9 fL (7.0-11.0); Mono # (Auto) 1.8 th/mm3 (0.0-0.9); Mono % (Auto) 12.8 % (0.0-8.0); Neut # (Auto) 11.7 th/mm3 (1.8-7.7); Neut % (Auto) 81.3 % (16.0-70.0); Platelet Count 347 th/mm3 (150-450); Red Blood Count 3.48 mil/mm3 (4.50-5.90); Red Cell Distribution Width 16.1 % (11.6-17.2); White Blood Count 14.4 th/mm3 (4.0-11.0)
[2018-01-01] MEDS ORDERED: Morphine Inj 4 MG/ML Vial IV.PUSH ONE (14:54)
[2018-01-01 14:59] LABS: Alanine Aminotransferase 17 U/L (12-78); Albumin 2.4 g/dL (3.4-5.0); Anion Gap 8 meq/L (5-15); Aspartate Aminotransferase 25 U/L (15-37); Blood Urea Nitrogen 30 mg/dL (7-18); Calcium 9.2 mg/dL (8.5-10.1); Carbon Dioxide 29.8 meq/L (21.0-32.0); Chloride 97 meq/L (98-107); Glomerular Filtration Rate Greater Than 89 mL/min (>89); Glucose,Random 102 mg/dL (74-106); Potassium 4.3 meq/L (3.5-5.1); Sodium 135 meq/L (136-145)
[2018-01-01 15:02] LABS: Alkaline Phosphatase 165 U/L (45-117); Total Protein 6.7 g/dL (6.4-8.2)
[2018-01-01] MEDS: Pantoprazole Inj 80 MG in Sodium Chlor 0.9% Inj 100 ML IV.CONT SCH (15:07)
--- NOTE | 2018-01-01 15:28 | XR ---
EXAM DATE: 01/01/2018 3:24 PM EST AGE/SEX: 62 years / Male INDICATIONS: Cough CLINICAL DATA: This is the patient's initial encounter. Patient reports that signs and symptoms have been present for 1 day and indicates a pain score of 0/10. MEDICAL/SURGICAL HISTORY: . Chronic obstructive pulmonary disease. Emphysema. MAC . Right u pper lobectomy COMPARISON: [facility], XR CHEST PA AND LAT, 03/07/2017. . FINDINGS: There is an Rwczfo-k-Codo in the left chest. The catheter tubing overlies the SVC. There is scarring and a small cavitary area in the right lung apex. This is similar in appearance to previous examination. There are pulmonary sutures adjacent to this. There are advanced COPD changes. There are new areas of infiltrate in the lung bases bilaterally. There is blunting of the costophrenic sulcus bilaterally. This is stable compared to previous exam. There is new infiltrate throughout the right lung base. CONCLUSION: New areas of infiltrate in the lung bases when compared to previous of 03/07/2017. This would be deandra rning for pneumonia. Electronically signed by: Janusz Sheth MD 01/01/2018 3:27 PM EST
[2018-01-01 15:33] LABS: Bacteria,Urine Occasional /hpf; Bilirubin,Urine Negative (Negative); Clarity,Urine Hazy (Clear); Color,Urine Yellow (Yellw/Straw); Glucose,Urine (UA) Negative (Negative); Hyaline Casts,Urine 7 /lpf (0-3); Leukocyte Esterase,Urine Negative (Negative); Mucus,Urine Many /lpf (Occasional); Nitrite,Urine Negative (Negative); Specific Gravity,Urine 1.027 (1.002-1.035); Squamous Epithelial Cell,Urine 1 /hpf (0-5)
[2018-01-01 15:36] LABS: Lymphocytes 1 % (9-44); Monocytes 11 % (0-8); Toxic Vacuolation Present
[2018-01-01 15:37] LABS: Platelet Estimate Normal (Normal); Platelet Morphology Normal (Normal); RBC Morphology Normal (Normal)
--- NOTE | 2018-01-01 15:57 | CT ---
EXAM DATE: 01/01/2018 3:44 PM EST AGE/SEX: 62 years / Male INDICATIONS: Shortness of breath. CLINICAL DATA: This is the patient's initial encounter. Patient reports that signs and symptoms have been present for 1 day and indicates a pain score of 7/10. MEDICAL/SURGICAL HISTORY: Carcinoma, lung. Chronic obstructive pulmonary disease. Hypertension. N one. RADIATION DOSE: 9.42 CTDI (mGy) COMPARISON: [facility], PET/CT TUMOR, 12/01/2017. . TECHNIQUE: Volumetric scanning was performed using a multi-row detector CT scanner during bolus infu everton of 70 ml Omnipaque 350 (iohexol) nonionic water-soluble contrast as a cumulative dose for multi ple exams. The data was post processed with a variety of visualization algorithms including full volu me maximum intensity projection and sliding thin slab reformation. Using automated exposure control and adjustment of the mA and/or kV according to patient size, radiation dose was kept as low as reaso nably achievable to obtain optimal diagnostic quality images. DICOM format image data is available e lectronically for review and comparison. FINDINGS: Pulmonary Arteries: No filling defects are seen in the pulmonary arteries through the segmental vess els. The main pulmonary artery is normal in diameter. Lung: Postsurgical features of prior right lobectomy with associated volume loss and mediastinal anastasiia ft to the right. Prominent centrilobular emphysema throughout the left lung. Large cavitary lesion ne ar the right lung apex with pleural-based mass in the posterior right lower lobe measuring 2.8 x 1.7 cm. Previously described peripheral lateral pleural-based mass appears slightly smaller in size measu ring 4.3 x 1.4 cm in comparison to 3.7 x 2.3 cm on prior exam. Diffuse interstitial prominence in the lower lobes bilaterally with bronchiectasis and mucous plugging in the left lung base. Pleura: Trace left-sided pleural effusion. Mediastinum: Enlargement of nearly anterior pericardial effusion now measuring 1.9 cm compared to 9 mm in prior exam heart is otherwise unremarkable.. Osseous Structures: No abnormal focal lytic or blastic bony lesions. Other: Visulaized upper abdomen is unremarkable. CONCLUSION: 1. No CT evidence for pulmonary artery embolism as questioned. 2. Postsurgical features of prior right lobectomy with associated volume loss and mediastinal shift to the right. 3. Prominent centrilobular emphysema throughout the left lung and residual right lung. 4. Stable large cavitary lesion in the right lung apex with slightly improved peripheral lateral ple ural-based mass in the right midlung measuring 4.3 x 1.4 cm. 5. New posterior pleural-based right lower lobe mass measuring 2.8 x 1.7 cm. 6. Enlarging primarily anterior pericardial effusion now measuring 1.9 cm. Electronically signed by: Sunil Brooke MD 01/01/2018 3:55 PM EST
--- NOTE | 2018-01-01 16:00 | CT ---
EXAM DATE: 01/01/2018 3:48 PM EST AGE/SEX: 62 years / Male INDICATIONS: Diffuse abdomen pain. CLINICAL DATA: This is the patient's initial encounter. Patient reports that signs and symptoms have been present for 1 day and indicates a pain score of 7/10. MEDICAL/SURGICAL HISTORY: Carcinoma, lung. Hypertension. Chronic obstructive pulmonary diseas e. None. ORAL CONTRAST: No oral contrast ingested. RADIATION DOSE: 4.68 CTDI (mGy) COMPARISON: [facility], CT ABDOMEN AND PELVIS W/ CONTRAST, 08/21/2017. . TECHNIQUE: Multiple contiguous axial images were obtained through the abdomen and pelvis following b olus infusion of 70 ml Omnipaque 350 (iohexol) nonionic water-soluble contrast as a cumulative dose for multiple exams. No oral contrast ingested. Using automated exposure control and adjustment of t he mA and/or kV according to patient size, radiation dose was kept as low as reasonably achievable to obtain optimal diagnostic quality images. DICOM format image data is available electronically for r eview and comparison. FINDINGS: Lower Lungs: Severe emphysematous changes, scarring and small partially loculated effusion left lung base Liver: Multiple low-density liver lesions not clearly present previously, largest a lesion nearly rep lacing segment III. No evidence of biliary ductal dilatation. Spleen: Homogeneous density without enlargement. Pancreas: Unremarkable without mass or calcification. Kidneys: Normal in size and shape. No evidence of mass or hydronephrosis. Adrenal Glands: Unremarkable. Aorta: The aorta and proximal iliac vessels are grossly unremarkable without aneurysmal dilation. Bowel/Mesentery: Mild fluid and gaseous distention of bowel, nonspecific. The cecum and sigmoid colo n have a normal configuration. Abdominal Wall: Intact. Retroperitoneum: No evidence of adenopathy in the retrocrural, para-aortic, or deep pelvic regions. Bladder: Contours are smooth. Reproductive Organs: No abnormal masses or calcifications seen. Inguinal: The inguinal region is unremarkable without evidence of adenopathy. Bony Structures: Unremarkable. CONCLUSION: 1. Low density liver lesions which were not identified previously 2. Ileus bowel gas pattern Electronically signed by: Han Cruz MD 01/01/2018 3:59 PM EST
[2018-01-01] MEDS ORDERED: Bisacodyl 10 MG Supp RECTAL PRN (16:30)
[2018-01-01 17:20] LABS: Activated Partial Thrombo Time 31.3 sec (23.4-31.7); INR 1.1 Ratio; Prothrombin Time 11.6 sec (9.8-11.6)
[2018-01-01] MEDS ORDERED: FOLIC ACID 400 MCG PO SCH (18:30)
--- NOTE | 2018-01-01 18:36 | P.HPIM ---
History of Present Illness Primary Care Physician: Annamarie Epps DO Chief Complaint: Black stools History of Present Illness: 62-year-old gentleman presents with black stools that started at midnight. He denies history of GI bleed. He has been on Eliquis for 2 months for recent diagnosis of pulmonary embolism, he is on chemo and radiation for metastatic esophageal cancer. He has been having chronic upper abd pain due to his cancer since he started chemo. He also states he has not eaten for 3 days due to nausea, he denies vomiting, fever or abnormal bowel movements prior to last night. 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 This includes certification that hospital inpatient services are reasonable and necessary and in the case of services not specified as inpatient-only under 42 CFR 419.22(n), that they are appropriately provided as inpatient services in accordance to with the 2-midnight benchmark under 43 CFR 412.3(e) Estimated Total Length of Stay (Days): 3 Plans for Post Hospital Care: Not yet determined Review of Systems Respiratory: Reports dyspnea Comments: chronic sob and on oxygen at home Gastrointestinal: Reports as per HPI and Reports abdominal pain (chronic epigastic and no radiation associated w nausea moderate to severe for which he takes percocet) Musculoskeletal: Reports abnormal gait and Reports muscle weakness Comments: right foot drop, right leg weakness, w multiple falls multiple falls due to weakness and uses cane due to PMFSH Medical History Medical History Paroxysmal A-fib (Acute) Chronic respiratory failure with hypoxia, on home O2 therapy (Acute) Adenocarcinoma of gastroesophageal junction (Acute) History of jejunostomy tube placement (Acute) Hydrocele (Acute) Mycobacterium avium complex (Acute) 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 (Acute) COPD (chronic obstructive pulmonary disease) (Acute) Cancer (Acute) HTN (hypertension) (Acute) Pulmonary emboli (Acute) Surgical History Surgical History History of lobectomy of lung (Acute) Social History Social History Substance History: Active Abuse Second Hand Smoke Exposure: No Smoking Status: Former smoker How Often Do You Have a Drink Containing Alcohol: Monthly or less Recent Travel in [place] within the Last 8 Weeks: No Recent Out of Country Travel within the Last 8 Weeks: No Substance Abuse Detail Marijuana: Substance Use Status: Active Route Used Substance Abuse: By Mouth and Inhalation Substance Abuse Comment: claims medical marijuana Reason for Use: Feels Good Immunization History Tetanus Immunization: <5 Years Hx Influenza Vaccine This Season: Yes Medications and Allergies Allergies Allergy/AdvReac Type Severity Reaction Status Date / Time doxycycline Allergy Intermediate Rash Verified 01/01/18 14:18 Home Medications Medication Instructions Recorded Confirmed Type apixaban [Eliquis] 5 mg PO BID 01/01/18 01/01/18 History atorvastatin 40 mg PO DAILY 01/01/18 01/01/18 History budesonide-formoterol [Symbicort] 2 puff INHALATION BID 01/01/18 01/01/18 History cholecalciferol (vitamin D3) 4,000 unit PO DAILY 01/01/18 01/01/18 History [Vitamin D3] diltiazem HCl [Cardizem] 120 mg PO DAILY 01/01/18 01/01/18 History folic acid 400 mcg PO DAILY 01/01/18 01/01/18 History ipratropium-albuterol 3 ml INHALATION Q6-8H PRN 01/01/18 01/01/18 History metoprolol tartrate 25 mg PO BID 01/01/18 01/01/18 History montelukast 10 mg PO QPM 01/01/18 01/01/18 History igwlxtjw-wgb-LD-lycopen-lutein 1 tab PO DAILY 01/01/18 01/01/18 History [Centrum Silver Men] oxycodone-acetaminophen 1 tab PO Q4H PRN 01/01/18 01/01/18 History ramucirumab 8 mg/kg IV Q2W 01/01/18 01/01/18 History tiotropium bromide [Spiriva with 2.5 mg INHALATION DAILY 01/01/18 01/01/18 History HandiHaler] Active Medications: Active Medications Al Hydroxide/Mg Hydroxide (Milk Of Magnesia Liq) 30 ml PO Q12H PRN PRN Reason: Mild Constipation Albuterol (Duoneb Neb (Prn)) ampul NEB Q6-8H PRN PRN Reason: sob Atorvastatin Calcium (Lipitor) 40 mg PO DAILY [facility] Bisacodyl (Dulcolax Supp) 10 mg RECTAL DAILY PRN PRN Reason: SEVERE CONSITIPATION Budesonide/Formoterol Fumarate (Symbicort 160/4.5 Mcg Inh) 2 puff INH BID [facility] Pantoprazole Sodium 80 mg/ (Sodium Chloride) 100 mls @ 10 mls/hr IV.CONT CONT [facility] Last Admin: 01/01/18 15:07 Dose: 10 mls/hr Lactulose (Lactulose Liq) 30 ml PO DAILY PRN PRN Reason: SEVERE CONSITIPATION Metoprolol Tartrate (Lopressor) 25 mg PO BID [facility] Montelukast Sodium (Singulair) 10 mg PO QPM [facility] Non-Formulary Medication (Cholecalciferol (Vitamin D3) [Vitamin D3]) 4,000 unit PO DAILY [facility] Non-Formulary Medication (Diltiazem Hcl [Cardizem]) 120 mg PO DAILY [facility] Non-Formulary Medication (Zsfuymrg-Dqv-Cx-Lycopen-Lutein [Centrum Silver Men]) 1 tab PO DAILY [facility] Non-Formulary Medication (Folic Acid [Folic Acid]) 400 mcg PO DAILY [facility] Ondansetron HCl (Zofran Inj) 4 mg IV.PUSH Q6H PRN PRN Reason: NAUSEA OR VOMITING Oxycodone/Acetaminophen (Percocet 10/325 Mg) 1 tab PO Q4H PRN PRN Reason: Pain Senna/Docusate Sodium (Jammie-Colace) 1 tab PO BID [facility] Sennosides (Senokot) 17.2 mg PO Q12H PRN PRN Reason: Moderate Constipation Tiotropium Hermon (Spiriva 18 Mcg Inh) 2,500 mcg INH DAILY [facility] Physical Exam Vital signs: Last Vital Signs Temp 98.1 F 01/01/18 18:00 Pulse 101 H 01/01/18 18:00 Resp 20 01/01/18 18:00 BP 96/66 L 01/01/18 18:00 Pulse Ox 84 L 01/01/18 18:00 Intake & Output 12/30/17 12/31/17 01/01/18 01/02/18 06:59 06:59 06:59 06:59 Intake Total 1000 / 1000 Balance 1000 / 1000 Weight 49.895 kg Narrative: Thin chronically ill appearing well-developed white 62-year-old gentleman Awake alert oriented in no acute distress normal mood and affect, pleasant HEENT normocephalic atraumatic pupils equal reactive sclerae anicteric extraocular motion intact oral mucosa is moist posterior pharynx is clear no exudate Neck supple no JVD trachea midline thyroid smooth not enlarged Anterior chest wall without mass or tenderness, port left subclavian without tenderness or erythema Heart S1-S2 regular with gallop no significant murmur or click Lungs diminished breath sounds right upper, right lower, and fair expansion with inspiratory expiratory wheeze no dullness to percussion Back exam no CVA tenderness or mass no spinal point tenderness Abdomen soft flat nondistended moderate epigastric tenderness no guarding rebound rigidity Lymph nodes no inguinal axillary or cervical adenopathy noted Extremities no clubbing cyanosis no significant edema, generalized muscle atrophy and wasting Neurologic cranial nerves II through XII grossly intact no facial asymmetry, he is diffusely hyperreflexic, with clonus bilateral lower extremities and foot drop on the right, Babinski's are equivocal, sensation appears intact, moving upper extremities 5 out of 5 Results Labs CBC & Chem 7: 01/01/18 14:15 01/01/18 14:15 Imaging Impressions Abdomen/Pelvis CT 01/01/18 14:23 CONCLUSION: 1. Low density liver lesions which were not identified previously 2. Ileus bowel gas pattern Chest X-Ray 01/01/18 14:24 CONCLUSION: New areas of infiltrate in the lung bases when compared to previous of 2017. This would be concerning for pneumonia. Chest CTA 01/01/18 14:45 CONCLUSION: 1. No CT evidence for pulmonary artery embolism as questioned. 2. Postsurgical features of prior right lobectomy with associated volume loss and mediastinal shift to the right. 3. Prominent centrilobular emphysema throughout the left lung and residual right lung. 4. Stable large cavitary lesion in the right lung apex with slightly improved peripheral lateral pleural-based mass in the right midlung measuring 4.3 x 1.4 cm. 5. New posterior pleural-based right lower lobe mass measuring 2.8 x 1.7 cm. 6. Enlarging primarily anterior pericardial effusion now measuring 1.9 cm. Caprini VTE Risk Assessment Caprini VTE Risk Assessment: Moderate/High Risk (score >= 2) Caprini Risk Assessment Model: Point Value = 1 Point Value = 2 Point Value = 3 Point Value = 5 Age 41-60 Minor surgery BMI > 25 kg/m2 Swollen legs Varicose veins or History of unexplained or recurrent spontaneous Oral contraceptives or hormone replacement Sepsis (< 1 month) Serious lung disease, including pneumonia (< 1 month) Abnormal pulmonary function Acute myocardial infarction Congestive heart failure (< 1 month) History of inflammatory bowel disease Medical patient at bed rest Age 61-74 Arthroscopic surgery Major open surgery (> 45 min) Laparoscopic surgery (> 45 min) Malignancy Confined to bed (> 72 hours) Immobilizing plaster cast Central venous access Age >= 75 History of VTE Family history of VTE Factor V Leiden Prothrombin [id number] Lupus anticoagulant Anticardiolipin antibodies Elevated serum homocysteine Heparin-induced thrombocytopenia Other congenital or acquired thrombophilia Stroke (< 1 month) Elective arthroplasty Hip, pelvis, or leg fracture Acute spinal cord injury (< 1 month) Prophylaxis Regimen: Total Risk Factor Score Risk Level Prophylaxis Regimen 0-1 Low Early ambulation 2 Moderate Order ONE of the following: *Sequential Compression Device (SCD) *Heparin 5000 units SQ BID 3-4 Higher Order ONE of the following medications: *Heparin 5000 units SQ TID *Enoxaparin/Lovenox 40 mg SQ daily (WT < 150 kg, CrCl > 30 mL/min) *Enoxaparin/Lovenox 30 mg SQ daily (WT < 150 kg, CrCl > 10-29 mL/min) *Enoxaparin/Lovenox 30 mg SQ BID (WT < 150 kg, CrCl > 30 mL/min) AND/OR *Sequential Compression Device (SCD) 5 or more Highest Order ONE of the following medications: *Heparin 5000 units SQ TID (Preferred with Epidurals) *Enoxaparin/Lovenox 40 mg SQ daily (WT < 150 kg, CrCl > 30 mL/min) *Enoxaparin/Lovenox 30 mg SQ daily (WT < 150 kg, CrCl > 10-29 mL/min) *Enoxaparin/Lovenox 30 mg SQ BID (WT < 150 kg, CrCl > 30 mL/min) AND *Sequential Compression Device (SCD) Assessment and Plan (1) 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: Code(s): C34.91 - Malignant neoplasm of unspecified part of right bronchus or lung; C78.7 - Secondary malignant neoplasm of liver and intrahepatic bile duct Status: Acute Plan MELENA due to GIB likley UPPER in patient with GE junction ca on eliquis for PE /afib - clinically tachycardic and dehydrated, w hgb 11, he is to admitted, started on protonix gtt and GI will be consulted for endoscopy ADENOCARCINOMA GE Junction w progressing mets to lung and liver, on chemo/ radiation, clinically suspected brain mets as well, will consult hemeonc ILEUS bowel gas pattern on ct abd pelvis, cont npo, fluids, PULMONARY EMBOLISM hx dx 3 mo ago on eliquis, hold eliquis for now, cta chest w no PE, cont scd, hypercoagulable due to ca, but ac ci due to gib for now. CHRONIC HYPOXIC RESPIRATORY FAILURE - o2 dependent COPD, hx MAC s/p RUL lobectomy, progressive pulm mets - cont nebs , pulm tx, oxygen PAROXYSMAL ATRIAL FIBRILLATION hx on atenolol and cardizem, sinus tach now, DYSLIPIDEMIA on statin RLE weakness, clonus, generalized hyperreflexia and worsening confusion per patient w multiple falls over past few mo - concern for brain mets will get MRI brain when stable, fu w onc, PT eval when stable and fall precaution SEVERE PROTEIN MARLON MALNUTRITION and UNDERWEIGHT STATUS BMI 16.2 - nutrition consult, diet when gib resolved PERICARDIAL EFFUSION anterior, enlarging per ct, 1.9cm, wo tamponade H&P: Quality VTE Deep Vein Thrombosis/Pulmonary Embolism Present on Admission: No
[2018-01-01] MEDS ORDERED: Sodium Chlor 0.9% Inj 500 ML IV.SIG SCH (19:17)
[2018-01-01] MEDS: Dextrose 5%/NaCl 0.45% Inj 1,000 ML IV.CONT SCH (22:00)
[2018-01-01] MEDS: Senna/Docusate Sodium 8.6/50 MG Tablet PO SCH (22:37)
[2018-01-01] MEDS: oxyCODONE/Acetaminophen 10/325 Tablet PO PRN (22:37)
[2018-01-01] MEDS: Metoprolol Tartrate 25 MG Tablet PO SCH ×2 (22:37→22:43)
[2018-01-02] MEDS: dilTIAZem CD 120 MG Capsule PO SCH ×2 (01:08→20:27)
[2018-01-02] MEDS: Budesonide-Formoterol 160/4.5 MCG 6 GM Inhaler INH SCH ×3 (01:52→22:20)
[2018-01-02] MEDS: Tiotropium Bromide 18 MCG/ACT Inhaler INH SCH ×2 (01:55→22:19)
[2018-01-02] MEDS: Dextrose 5%/NaCl 0.45% Inj 1,000 ML IV.CONT SCH ×3 (04:40→18:01)
[2018-01-02] MEDS: Metoprolol Tartrate 25 MG Tablet PO SCH ×2 (09:17→20:27)
[2018-01-02] MEDS: Senna/Docusate Sodium 8.6/50 MG Tablet PO SCH ×2 (09:17→22:19)
[2018-01-02] MEDS: oxyCODONE/Acetaminophen 10/325 Tablet PO PRN ×2 (09:25→14:28)
--- NOTE | 2018-01-02 10:01 | P.PNIM ---
Subjective Interval history: Downward trend in hemoglobin from 11.6 to 9.5 today. Patient reports no evidence of GI bleed. He is has esophageal cancer at baseline which may be ulcerated status post receiving chemotherapy 2 days ago. Additionally his drop in hemoglobin could represent a chemotherapy-induced drop providing a mixed picture. Physical Exam Vital signs: Vital Signs 01/01/18 13:34 01/01/18 14:06 01/01/18 17:43 Temperature 97.5 F L Pulse Rate 103 H 134 H 134 H Respiratory Rate 16 20 18 Blood Pressure 108/64 101/76 174/102 H Pulse Oximetry 99 93 L 93 L 01/01/18 18:00 01/01/18 19:09 01/01/18 19:36 Temperature 98.1 F 97.8 F Pulse Rate 101 H 101 H 103 H Respiratory Rate 20 20 16 Blood Pressure 96/66 L 104/71 Pulse Oximetry 84 L 94 L 01/02/18 00:00 01/02/18 02:35 01/02/18 04:00 Temperature 97.6 F 97.4 F L Pulse Rate 90 88 81 Respiratory Rate 12 18 20 Blood Pressure 100/62 99/57 L Pulse Oximetry 97 97 01/02/18 08:00 01/02/18 09:31 Temperature 97.4 F L Pulse Rate 100 H 86 Respiratory Rate 18 19 Blood Pressure 101/69 Pulse Oximetry 94 L 97 Intake & Output 01/01/18 01/02/18 01/02/18 18:59 06:59 18:59 Intake Total 1250 / 1250 1600 / 1600 Balance 1250 / 1250 1600 / 1600 Weight 49.895 kg Intake: IV 1000 / 1000 1600 / 1600 D5W/1/2 NS Inj 1,000 ML @ 100 1000 / 1000 mls/hr IV.CONT .Q10H [facility]AY[facility] Rx#: [id number] Protonix Inj 80 MG In NS Inj 100 / 100 100 ML @ 10 mls/hr IV.CONT CONT [facility] Rx#:[id number] NS Inj 1,000 ML @ 1000 mls/hr 1000 / 1000 IV.SIG BOLUS SAY[facility] Rx#:[id number] NS Inj 500 ML @ 1000 mls/hr IV. 500 / 500 SIG BOLUS SAYRA Rx#:[id number] Oral 250 / 250 Other: # Voids 2 Date of Last Bowel Movement 12/31/17 Weight On Admission 49.895 kg Narrative: GENERAL: NAD, A&Ox3 HEAD: Normocephalic. NECK: Supple, trachea midline. No lymphadenopathy. EYES: No scleral icterus. No injection or drainage. CARDIOVASCULAR: Regular rate and rhythm without murmurs, gallops, or rubs. RESPIRATORY: Breath sounds equal bilaterally. No accessory muscle use. GASTROINTESTINAL: Abdomen soft, non-tender, nondistended. MUSCULOSKELETAL: No cyanosis, or edema. SKIN: Warm and dry. NEURO: No focal neurological deficits. Results - Labs CBC & Chem 7: 01/01/18 21:38 01/01/18 14:15 Laboratory Results - last 24 hr 01/01/18 01/01/18 01/01/18 14:15 14:15 14:15 WBC 14.4 H RBC 3.48 L Hgb 11.6 L Hct 34.7 L MCV 99.6 MCH 33.3 MCHC 33.5 RDW 16.1 Plt Count 347 MPV 7.9 Prelim Diff (Auto) Slide review pending Neut % (Auto) 81.3 H Lymph % (Auto) 4.4 L Orange % (Auto) 12.8 H Eos % (Auto) 0.1 Baso % (Auto) 1.4 Neut # (Auto) 11.7 H Lymph # (Auto) 0.6 L Orange # (Auto) 1.8 H Eos # (Auto) 0.0 Baso # (Auto) 0.2 WBC Differential Manual diff final Seg Neuts % (Manual) 87 H Lymphocytes % (Manual) 1 L Monocytes % (Manual) 11 H Basophils % (Manual) 1 Abs Neuts (Manual) 12.5 H Differential Comment . Toxic Vacuolation Present H Platelet Estimate Normal Platelet Morphology Normal RBC Morphology Normal PT INR APTT Sodium 135 L Potassium 4.3 Chloride 97 L Carbon Dioxide 29.8 Anion Gap 8 BUN 30 H Creatinine 0.64 Estimated GFR Greater than 89 Random Glucose 102 Calcium 9.2 Magnesium 2.0 Total Bilirubin 0.4 AST 25 ALT 17 Alkaline Phosphatase 165 H Total Protein 6.7 Albumin 2.4 L Urine Color Urine Clarity Urine pH Ur Specific [place] Urine Protein Urine Glucose (UA) Urine Ketones Urine Occult Blood Urine Nitrate Urine Bilirubin Urine Urobilinogen Ur Leukocyte Esterase Urine RBC Urine WBC Ur Squamous Epith Cells Urine Bacteria Hyaline Casts Urine Mucus Micro UA Comment Ur Microscopic Review Urine Culture Comments Blood Type A Positive Blood Type Recheck Required Antibody Screen Negative 01/01/18 01/01/18 01/01/18 15:00 16:38 21:38 WBC RBC Hgb 9.5 L D Hct MCV MCH MCHC RDW Plt Count MPV Prelim Diff (Auto) Neut % (Auto) Lymph % (Auto) Orange % (Auto) Eos % (Auto) Baso % (Auto) Neut # (Auto) Lymph # (Auto) Orange # (Auto) Eos # (Auto) Baso # (Auto) WBC Differential Seg Neuts % (Manual) Lymphocytes % (Manual) Monocytes % (Manual) Basophils % (Manual) Abs Neuts (Manual) Differential Comment Toxic Vacuolation Platelet Estimate Platelet Morphology RBC Morphology PT 11.6 INR 1.1 APTT 31.3 Sodium Potassium Chloride Carbon Dioxide Anion Gap BUN Creatinine Estimated GFR Random Glucose Calcium Magnesium Total Bilirubin AST ALT Alkaline Phosphatase Total Protein Albumin Urine Color Yellow Urine Clarity Hazy H Urine pH 5.0 Ur Specific [place] 1.027 Urine Protein 30 H Urine Glucose (UA) Negative Urine Ketones Trace H Urine Occult Blood Negative Urine Nitrate Negative Urine Bilirubin Negative Urine Urobilinogen Less than 2 Ur Leukocyte Esterase Negative Urine RBC Less than 1 Urine WBC 4 Ur Squamous Epith Cells 1 Urine Bacteria Occasional H Hyaline Casts 7 Urine Mucus Many H Micro UA Comment Culture not ind Ur Microscopic Review Not Reportable Urine Culture Comments Culture not ind Blood Type Blood Type Recheck Antibody Screen - Imaging Impressions Abdomen/Pelvis CT 01/01/18 14:23 CONCLUSION: 1. Low density liver lesions which were not identified previously 2. Ileus bowel gas pattern Chest X-Ray 01/01/18 14:24 CONCLUSION: New areas of infiltrate in the lung bases when compared to previous of 2017. This would be concerning for pneumonia. Chest CTA 01/01/18 14:45 CONCLUSION: 1. No CT evidence for pulmonary artery embolism as questioned. 2. Postsurgical features of prior right lobectomy with associated volume loss and mediastinal shift to the right. 3. Prominent centrilobular emphysema throughout the left lung and residual right lung. 4. Stable large cavitary lesion in the right lung apex with slightly improved peripheral lateral pleural-based mass in the right midlung measuring 4.3 x 1.4 cm. 5. New posterior pleural-based right lower lobe mass measuring 2.8 x 1.7 cm. 6. Enlarging primarily anterior pericardial effusion now measuring 1.9 cm. 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 fib, Elequis now on hold Continue Protonix GI following Possible EGD Gastroesophageal adenocarcinoma Heme oncology following Ileus N.p.o. for now IV hydration Follow clinically Pulmonary embolism Eliquis on hold for now Follow clinically Chronic hypoxic respiratory failure COPD Continue oxygen supplementation Follow oxygen levels Hyperlipidemia Continue present treatment Follow as an outpatient Atrial fibrillation No RVR Continue atenolol Continue Cardizem Eliquis on hold Right lower extremity weakness MRI of brain pending Evaluation for metastatic disease as etiology Low BMI Calorie deficit malnutrition Related to cancer Related to esophageal mass Pericardial effusion May be related to cancer Follow clinically No evidence of tamponade at this point DVT prophylaxis SCDs Anticoagulation contraindicated
[2018-01-02 10:30] LABS: Baso % (Auto) 0.3 % (0.0-2.0); Eos % (Auto) 0.4 % (0.0-4.0); Hematocrit 27.2 % (39.0-51.0); Hemoglobin 9.1 gm/dL (13.0-17.0); Lymph # (Auto) 0.4 th/mm3 (1.0-4.8); Lymph % (Auto) 3.6 % (9.0-44.0); Mean Corpuscular HGB Conc 33.4 % (32.0-36.0); Mean Corpuscular Hemoglobin 33.1 pg (27.0-34.0); Mean Corpuscular Volume 99.2 fL (80.0-100.0); Mean Platelet Volume 8.6 fL (7.0-11.0); Neut # (Auto) 8.4 th/mm3 (1.8-7.7); Neut % (Auto) 85.7 % (16.0-70.0); Platelet Count 250 th/mm3 (150-450); Red Blood Count 2.74 mil/mm3 (4.50-5.90); Red Cell Distribution Width 16.1 % (11.6-17.2); White Blood Count 9.8 th/mm3 (4.0-11.0)
[2018-01-02 11:56] LABS: Eosinophils 1 % (0-4); Lymphocytes 3 % (9-44); Metamyelocytes 1 % (0-1); Monocytes 9 % (0-8); Platelet Estimate Normal (Normal); Platelet Morphology Normal (Normal)
[2018-01-02] MEDS ORDERED: Gadobutrol PF 2 MMOL/2 ML Vial (for RAD) IV.SIG ONE (11:57)
--- NOTE | 2018-01-02 12:35 | MR ---
EXAM DATE: 01/02/2018 12:22 PM EST AGE/SEX: 62 years / Male INDICATIONS: Metastatic disease. CLINICAL DATA: This is the patient's subsequent encounter. Patient reports that signs and symptoms h ave been present for 2 days and indicates a pain score of 0/10. MEDICAL/SURGICAL HISTORY: Carcinoma, esophageal. Metastatic disease. . Hydrocele. Right upper lung surgery. COMPARISON: [facility] [place], CT HEAD W/O CONTRAST, 11/01/2017. . TECHNIQUE: Multiplanar, multisequence examination of the brain was performed without and with 5 ml Ga davist (gadobutrol) contrast as a single exam dose. FINDINGS: Cerebrum: The ventricles are normal for age. No evidence of midline shift, mass lesion, hemorrhage or acute infarction. No extraaxial fluid collections are seen. The pituitary gland and suprasellar cistern are normal in configuration. White Matter: Scattered punctate areas of white matter T2 prolongation which are nonspecific, howeve r likely microvascular ischemic in etiology. Posterior Fossa: The cerebellum and brainstem are intact. The 4th ventricle is midline. The cerebel lopontine angle is unremarkable. The cerebellar tonsils are normal in position. Diffusion Imaging: No focal areas of restricted diffusion are seen. No evidence of acute infarction . Extracranial: The visualized portions of the orbits and paranasal sinuses are unremarkable. Post Contrast: No abnormal areas of parenchymal or dural enhancement. No evidence of blood-brain ba rrier breakdown. CONCLUSION: Scattered probably benign white matter signal changes. No evidence of acute process or metastatic dis ease. Electronically signed by: Han Cruz MD 01/02/2018 12:33 PM EST
--- NOTE | 2018-01-02 13:43 | P.CONGI ---
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 Surgical history includes lobectomy of lung. Patient presented to the emergency room at [facility] with complaints of black stools onset 12/31/2017. Patient endorses abdominal pain that he describes as mild lower abdominal cramping. Patient denies any nausea or vomiting. Of note, patient currently on Eliquis 5 mg p.o. twice daily for history of pulmonary embolism. He states last dose was taken on 12/30/2017 in the p.m. Patient denies any use of aspirin or NSAIDs. He states his family history is not known due to his being adopted. Patient states last colonoscopy was done 5 years ago and reports no polyps were found and findings were unremarkable per patient. Patient denies any difficulty swallowing or odynophagia. He denies any unintended weight loss. Patient does endorse that he drinks socially and denies tobacco use, states he stopped smoking in 2013. Our service has been consulted to evaluate patient for reported black stools. <Luciana Guillen - Last Filed: 01/02/18 13:30> Review of Systems All other systems reviewed negative except as stated in HPI <Luciana Guillen - Last Filed: 01/02/18 13:30> PMFSH - History History Provided By: Patient - Medical History Medical History: Medical History (Last Reviewed 01/02/18 @ 07:03 by Ron Brandon) Paroxysmal A-fib (Acute) Chronic respiratory failure with hypoxia, on home O2 therapy (Acute) Adenocarcinoma of gastroesophageal junction (Acute) History of jejunostomy tube placement Hydrocele Mycobacterium avium complex 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 COPD (chronic obstructive pulmonary disease) Cancer HTN (hypertension) Pulmonary emboli - Surgical History Surgical History: Surgical History (Last Reviewed 01/02/18 @ 07:03 by Ron Brandon) History of lobectomy of lung - Tobacco History Second Hand Smoke Exposure: No Smoking Status: Former smoker - Alcohol History How Often Do You Have a Drink Containing Alcohol: Monthly or less - Substance Use History Substance History: Active Abuse - Substance Use Type Marijuana Status: Active Route Used: Inhalation Reason for Use: Feels Good Comment: claims medical marijuana - Travel History Recent Travel in the [place] Within the Last 8 Weeks: No Recent Travel Out of the Country Within the Last 8 Weeks: No - Immunization History Tetanus Immunization: <5 Years Hx Influenza Vaccine This Season: Yes <Luciana Guillen - Last Filed: 01/02/18 13:30> - Medical History Medical History: Medical History (Last Reviewed 01/02/18 @ 07:03 by Ron Brandon) Paroxysmal A-fib (Acute) Chronic respiratory failure with hypoxia, on home O2 therapy (Acute) Adenocarcinoma of gastroesophageal junction (Acute) History of jejunostomy tube placement Hydrocele Mycobacterium avium complex 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 COPD (chronic obstructive pulmonary disease) Cancer HTN (hypertension) Pulmonary emboli - Surgical History Surgical History: Surgical History (Last Reviewed 01/02/18 @ 07:03 by Ron Brandon) History of lobectomy of lung <Josie Le - Last Filed: 01/03/18 12:20> Medications and Allergies Active Medications: Active Medications Al Hydroxide/Mg Hydroxide (Milk Of Magnotoniel Liq) 30 ml PO Q12H PRN PRN Reason: Mild Constipation Albuterol (Duoneb Neb (Prn)) 1 ampul NEB Q6HR NEB PRN PRN Reason: SHORTNESS OF BREATH Last Admin: 01/02/18 09:29 Dose: 1 ampul Atorvastatin Calcium (Lipitor) 40 mg PO QPM [facility] Last Admin: 01/01/18 23:00 Dose: 40 mg Bisacodyl (Dulcolax Supp) 10 mg RECTAL DAILY PRN PRN Reason: SEVERE CONSITIPATION Budesonide/Formoterol Fumarate (Symbicort 160/4.5 Mcg Inh) 2 puff INH BID [facility] Last Admin: 01/02/18 09:17 Dose: 2 puff Diltiazem HCl (Cardizem Cd 24hr) 120 mg PO Q24H [facility] Last Admin: 01/02/18 01:08 Dose: Not Given Pantoprazole Sodium 80 mg/ (Sodium Chloride) 100 mls @ 10 mls/hr IV.CONT CONT [facility] Last Infusion: 01/02/18 01:51 Dose: Infused Dextrose/Sodium Chloride (D5w/1/2 Ns Inj) 1,000 mls @ 100 mls/hr IV.CONT .Q10H [facility] Last Admin: 01/02/18 09:17 Dose: Not Given Lactulose (Lactulose Liq) 30 ml PO DAILY PRN PRN Reason: SEVERE CONSITIPATION Lorazepam (Ativan Inj) 1 mg IV.PUSH ONCE PRN PRN Reason: 15 minutes prior to MRI Last Admin: 01/02/18 11:21 Dose: 1 mg Metoprolol Tartrate (Lopressor) 25 mg PO BID [facility] Last Admin: 01/02/18 09:17 Dose: 25 mg Montelukast Sodium (Singulair) 10 mg PO QPM [facility] Multivitamins (Theragran) 1 tab PO DAILY [facility] Last Admin: 01/02/18 09:17 Dose: 1 tab Ondansetron HCl (Zofran Inj) 4 mg IV.PUSH Q6H PRN PRN Reason: NAUSEA OR VOMITING Oxycodone/Acetaminophen (Percocet 10/325 Mg) 1 tab PO Q4H PRN PRN Reason: Pain 1-10 Last Admin: 01/02/18 09:25 Dose: 1 tab Senna/Docusate Sodium (Jammie-Colace) 1 tab PO BID [facility] Last Admin: 01/02/18 09:17 Dose: 1 tab Sennosides (Senokot) 17.2 mg PO Q12H PRN PRN Reason: Moderate Constipation Tiotropium [place] (Spiriva 18 Mcg Inh) 18 mcg INH Q24H [facility] Last Admin: 01/02/18 01:55 Dose: 18 mcg Vitamin D (Vitamin D3) 4,000 unit PO Q24H [facility] Last Admin: 01/01/18 23:00 Dose: 4,000 unit <Luciana Guillen - Last Filed: 01/02/18 13:30> Active Medications: Active Medications Al Hydroxide/Mg Hydroxide (Milk Of Magnesia Liq) 30 ml PO Q12H PRN PRN Reason: Mild Constipation Albuterol (Ventolin Hfa Inh) 2 puff INH Q4H PRN PRN Reason: SHORTNESS OF BREATH Albuterol (Duoneb Neb (Prn)) 1 ampul NEB Q2HR NEB PRN PRN Reason: SHORTNESS OF BREATH Atorvastatin Calcium (Lipitor) 40 mg PO QPM [facility] Last Admin: 01/02/18 18:01 Dose: 40 mg Bisacodyl (Dulcolax Supp) 10 mg RECTAL DAILY PRN PRN Reason: SEVERE CONSITIPATION Budesonide/Formoterol Fumarate (Symbicort 160/4.5 Mcg Inh) 2 puff INH BID [facility] Last Admin: 01/03/18 08:28 Dose: 2 puff Diltiazem HCl (Cardizem Cd 24hr) 120 mg PO Q24H [facility] Last Admin: 01/02/18 20:27 Dose: Not Given Pantoprazole Sodium 80 mg/ (Sodium Chloride) 100 mls @ 10 mls/hr IV.CONT CONT [facility] Last Admin: 01/03/18 06:26 Dose: 10 mls/hr Dextrose/Sodium Chloride (D5w/1/2 Ns Inj) 1,000 mls @ 100 mls/hr IV.CONT .Q10H [facility] Last Admin: 01/03/18 04:35 Dose: 100 mls/hr Lactulose (Lactulose Liq) 30 ml PO DAILY PRN PRN Reason: SEVERE CONSITIPATION Lorazepam (Ativan Inj) 1 mg IV.PUSH ONCE PRN PRN Reason: 15 minutes prior to MRI Last Admin: 01/02/18 11:21 Dose: 1 mg Lorazepam (Ativan Inj) 0.5 mg IV.PUSH Q6H PRN PRN Reason: ANXIETY Metoprolol Tartrate (Lopressor) 25 mg PO BID [facility] Last Admin: 01/03/18 08:28 Dose: Not Given Montelukast Sodium (Singulair) 10 mg PO QPM [facility] Last Admin: 01/02/18 22:19 Dose: 10 mg Morphine Sulfate (Morphine Inj) 4 mg IV.PUSH Q4H PRN PRN Reason: breakthrough pain 7-10 Multivitamins (Theragran) 1 tab PO DAILY [facility] Last Admin: 01/03/18 08:28 Dose: 1 tab Ondansetron HCl (Zofran Inj) 4 mg IV.PUSH Q6H PRN PRN Reason: NAUSEA OR VOMITING Oxycodone/Acetaminophen (Percocet 10/325 Mg) 1 tab PO Q4H PRN PRN Reason: Pain 1-10 Last Admin: 01/03/18 08:27 Dose: 1 tab Senna/Docusate Sodium (Jammie-Colace) 1 tab PO BID [facility] Last Admin: 01/03/18 08:28 Dose: Not Given Sennosides (Senokot) 17.2 mg PO Q12H PRN PRN Reason: Moderate Constipation Tiotropium [place] (Spiriva 18 Mcg Inh) 18 mcg INH Q24H [facility] Last Admin: 01/02/18 22:19 Dose: 18 mcg Vitamin D (Vitamin D3) 4,000 unit PO Q24H [facility] Last Admin: 01/02/18 21:48 Dose: Not Given <Josie Le - Last Filed: 01/03/18 12:20> Allergies Allergy/AdvReac Type Severity Reaction Status Date / Time doxycycline Allergy Intermediate Rash Verified 01/01/18 14:18 Home Medications Medication Instructions Recorded Confirmed Type apixaban [Eliquis] 5 mg PO BID 01/01/18 01/01/18 History atorvastatin 40 mg PO DAILY 01/01/18 01/01/18 History budesonide-formoterol [Symbicort] 2 puff INHALATION BID 01/01/18 01/01/18 History diltiazem HCl [Cardizem] 120 mg PO DAILY 01/01/18 01/01/18 History folic acid 400 mcg PO DAILY 01/01/18 01/01/18 History ipratropium-albuterol 3 ml INHALATION Q6-8H PRN 01/01/18 01/01/18 History metoprolol tartrate 25 mg PO BID 01/01/18 01/01/18 History montelukast 10 mg PO QPM 01/01/18 01/01/18 History kwkvigcw-eaj-AU-lycopen-lutein 1 tab PO DAILY 01/01/18 01/01/18 History [Centrum Silver Men] oxycodone-acetaminophen 1 tab PO Q4H PRN 01/01/18 01/01/18 History ramucirumab 8 mg/kg IV Q2W 01/01/18 01/01/18 History tiotropium bromide [Spiriva with 2.5 mg INHALATION DAILY 01/01/18 01/01/18 History HandiHaler] cholecalciferol (vitamin D3) 400 unit PO DAILY 01/02/18 01/02/18 History [Vitamin D3] Exam Vital signs: Vital Signs 01/01/18 13:34 01/01/18 14:06 01/01/18 17:43 Temperature 97.5 F L Pulse Rate 103 H 134 H 134 H Respiratory Rate 16 20 18 Blood Pressure 108/64 101/76 174/102 H Pulse Oximetry 99 93 L 93 L 01/01/18 18:00 01/01/18 19:09 01/01/18 19:36 Temperature 98.1 F 97.8 F Pulse Rate 101 H 101 H 103 H Respiratory Rate 20 20 16 Blood Pressure 96/66 L 104/71 Pulse Oximetry 84 L 94 L 01/02/18 00:00 01/02/18 02:35 01/02/18 04:00 Temperature 97.6 F 97.4 F L Pulse Rate 90 88 81 Respiratory Rate 12 18 20 Blood Pressure 100/62 99/57 L Pulse Oximetry 97 97 01/02/18 08:00 01/02/18 09:31 01/02/18 11:32 Temperature 97.4 F L 97.8 F Pulse Rate 100 H 86 79 Respiratory Rate 18 19 16 Blood Pressure 101/69 100/61 Pulse Oximetry 94 L 97 94 L Intake & Output 01/01/18 01/02/18 01/02/18 18:59 06:59 18:59 Intake Total 1250 / 1250 1600 / 1600 Balance 1250 / 1250 1600 / 1600 Weight 49.895 kg Intake: IV 1000 / 1000 1600 / 1600 D5W/1/2 NS Inj 1,000 ML @ 100 1000 / 1000 mls/hr IV.CONT .Q10H [facility] Rx#: [id number] Protonix Inj 80 MG In NS Inj 100 / 100 100 ML @ 10 mls/hr IV.CONT CONT [facility] Rx#:[id number] NS Inj 1,000 ML @ 1000 mls/hr 1000 / 1000 IV.SIG BOLUS [facility] Rx#:[id number] NS Inj 500 ML @ 1000 mls/hr IV. 500 / 500 SIG BOLUS SAYRA Rx#:[id number] Oral 250 / 250 Other: # Voids 2 Date of Last Bowel Movement 12/31/17 Weight On Admission 49.895 kg - Constitutional no acute distress - Routine HEENT Exam Head: Present: normocephalic - Routine Respiratory Exam Comments: cta - Routine Abdominal Exam Present: soft, normoactive bowel sounds. Absent: tenderness, distended, guarding, firm - Routine Skin Exam Present: dry, warm - Routine Neurological Exam Present: alert - Routine Psychiatric Exam Present: normal affect, cooperative <Guillen,Luciana - Last Filed: 01/02/18 13:30> Vital signs: Vital Signs 01/02/18 19:32 01/02/18 20:25 01/02/18 23:28 Temperature 97.4 F L 98.3 F Pulse Rate 100 H 84 84 Respiratory Rate 16 18 12 Blood Pressure 102/56 L 97/63 L Pulse Oximetry 91 L 92 L 91 L 01/03/18 02:55 01/03/18 03:14 01/03/18 04:00 Temperature 98.3 F Pulse Rate 101 H 97 H 94 H Respiratory Rate 20 16 Blood Pressure 96/78 L Pulse Oximetry 99 01/03/18 08:00 01/03/18 09:00 01/03/18 11:40 Temperature 98.1 F 97.8 F Pulse Rate 97 H 92 H 107 H Respiratory Rate 20 18 Blood Pressure 97/75 L 92/69 L Pulse Oximetry 99 92 L Intake & Output 01/02/18 01/03/18 01/03/18 18:59 06:59 18:59 Intake Total 1000 / 1000 1000 / 1000 Balance 1000 / 1000 1000 / 1000 Weight 50.1 kg Intake: IV 1000 / 1000 1000 / 1000 D5W/1/2 NS Inj 1,000 ML @ 100 1000 / 1000 1000 / 1000 mls/hr IV.CONT .Q10H [facility] Rx#: [id number] Other: Date of Last Bowel Movement 12/31/17 01/01/18 01/01/18 <Josie Le - Last Filed: 01/03/18 12:20> Results - Labs CBC & Chem 7: 01/02/18 08:39 01/01/18 14:15 Labs: Laboratory Results - last 24 hr 01/01/18 01/01/18 01/01/18 14:15 14:15 14:15 WBC 14.4 H RBC 3.48 L Hgb 11.6 L Hct 34.7 L MCV 99.6 MCH 33.3 MCHC 33.5 RDW 16.1 Plt Count 347 MPV 7.9 Prelim Diff (Auto) Slide review pending Neut % (Auto) 81.3 H Lymph % (Auto) 4.4 L Reagan % (Auto) 12.8 H Eos % (Auto) 0.1 Baso % (Auto) 1.4 Neut # (Auto) 11.7 H Lymph # (Auto) 0.6 L Reagan # (Auto) 1.8 H Eos # (Auto) 0.0 Baso # (Auto) 0.2 WBC Differential Manual diff final Seg Neuts % (Manual) 87 H Band Neuts % (Manual) Lymphocytes % (Manual) 1 L Monocytes % (Manual) 11 H Eosinophils % (Manual) Basophils % (Manual) 1 Metamyelocytes % (Man) Abs Neuts (Manual) 12.5 H Differential Comment . Toxic Vacuolation Present H Platelet Estimate Normal Platelet Morphology Normal RBC Morphology Normal PT INR APTT Sodium 135 L Potassium 4.3 Chloride 97 L Carbon Dioxide 29.8 Anion Gap 8 BUN 30 H Creatinine 0.64 Estimated GFR Greater than 89 Random Glucose 102 Calcium 9.2 Magnesium 2.0 Total Bilirubin 0.4 AST 25 ALT 17 Alkaline Phosphatase 165 H Total Protein 6.7 Albumin 2.4 L Urine Color Urine Clarity Urine pH Ur Specific [place] Urine Protein Urine Glucose (UA) Urine Ketones Urine Occult Blood Urine Nitrate Urine Bilirubin Urine Urobilinogen Ur Leukocyte Esterase Urine RBC Urine WBC Ur Squamous Epith Cells Urine Bacteria Hyaline Casts Urine Mucus Micro UA Comment Ur Microscopic Review Urine Culture Comments Blood Type A Positive Blood Type Recheck Required Antibody Screen Negative 01/01/18 01/01/18 01/01/18 15:00 16:38 21:38 WBC RBC Hgb 9.5 L D Hct MCV MCH MCHC RDW Plt Count MPV Prelim Diff (Auto) Neut % (Auto) Lymph % (Auto) Reagan % (Auto) Eos % (Auto) Baso % (Auto) Neut # (Auto) Lymph # (Auto) Reagan # (Auto) Eos # (Auto) Baso # (Auto) WBC Differential Seg Neuts % (Manual) Band Neuts % (Manual) Lymphocytes % (Manual) Monocytes % (Manual) Eosinophils % (Manual) Basophils % (Manual) Metamyelocytes % (Man) Abs Neuts (Manual) Differential Comment Toxic Vacuolation Platelet Estimate Platelet Morphology RBC Morphology PT 11.6 INR 1.1 APTT 31.3 Sodium Potassium Chloride Carbon Dioxide Anion Gap BUN Creatinine Estimated GFR Random Glucose Calcium Magnesium Total Bilirubin AST ALT Alkaline Phosphatase Total Protein Albumin Urine Color Yellow Urine Clarity Hazy H Urine pH 5.0 Ur Specific [place] 1.027 Urine Protein 30 H Urine Glucose (UA) Negative Urine Ketones Trace H Urine Occult Blood Negative Urine Nitrate Negative Urine Bilirubin Negative Urine Urobilinogen Less than 2 Ur Leukocyte Esterase Negative Urine RBC Less than 1 Urine WBC 4 Ur Squamous Epith Cells 1 Urine Bacteria Occasional H Hyaline Casts 7 Urine Mucus Many H Micro UA Comment Culture not ind Ur Microscopic Review Not Reportable Urine Culture Comments Culture not ind Blood Type Blood Type Recheck Antibody Screen 01/02/18 08:39 WBC 9.8 RBC 2.74 L Hgb 9.1 L Hct 27.2 L MCV 99.2 MCH 33.1 MCHC 33.4 RDW 16.1 Plt Count 250 MPV 8.6 Prelim Diff (Auto) Slide review pending Neut % (Auto) 85.7 H Lymph % (Auto) 3.6 L Reagan % (Auto) 10.0 H Eos % (Auto) 0.4 Baso % (Auto) 0.3 Neut # (Auto) 8.4 H Lymph # (Auto) 0.4 L Reagan # (Auto) 1.0 H Eos # (Auto) 0.0 Baso # (Auto) 0.0 WBC Differential Manual diff final Seg Neuts % (Manual) 79 H Band Neuts % (Manual) 6 Lymphocytes % (Manual) 3 L Monocytes % (Manual) 9 H Eosinophils % (Manual) 1 Basophils % (Manual) 1 Metamyelocytes % (Man) 1 Abs Neuts (Manual) 8.4 H Differential Comment . Toxic Vacuolation Platelet Estimate Normal Platelet Morphology Normal RBC Morphology PT INR APTT Sodium Potassium Chloride Carbon Dioxide Anion Gap BUN Creatinine Estimated GFR Random Glucose Calcium Magnesium Total Bilirubin AST ALT Alkaline Phosphatase Total Protein Albumin Urine Color Urine Clarity Urine pH Ur Specific [place] Urine Protein Urine Glucose (UA) Urine Ketones Urine Occult Blood Urine Nitrate Urine Bilirubin Urine Urobilinogen Ur Leukocyte Esterase Urine RBC Urine WBC Ur Squamous Epith Cells Urine Bacteria Hyaline Casts Urine Mucus Micro UA Comment Ur Microscopic Review Urine Culture Comments Blood Type Blood Type Recheck Antibody Screen - Imaging Impressions Abdomen/Pelvis CT 01/01/18 14:23 CONCLUSION: 1. Low density liver lesions which were not identified previously 2. Ileus bowel gas pattern Chest X-Ray 01/01/18 14:24 CONCLUSION: New areas of infiltrate in the lung bases when compared to previous of 2017. This would be concerning for pneumonia. Chest CTA 01/01/18 14:45 CONCLUSION: 1. No CT evidence for pulmonary artery embolism as questioned. 2. Postsurgical features of prior right lobectomy with associated volume loss and mediastinal shift to the right. 3. Prominent centrilobular emphysema throughout the left lung and residual right lung. 4. Stable large cavitary lesion in the right lung apex with slightly improved peripheral lateral pleural-based mass in the right midlung measuring 4.3 x 1.4 cm. 5. New posterior pleural-based right lower lobe mass measuring 2.8 x 1.7 cm. 6. Enlarging primarily anterior pericardial effusion now measuring 1.9 cm. Head MRI 01/02/18 00:00 CONCLUSION: Scattered probably benign white matter signal changes. No evidence of acute process or metastatic disease. <Luciana Guillen - Last Filed: 01/02/18 13:30> - Labs CBC & Chem 7: 01/03/18 06:00 01/03/18 06:00 Labs: Laboratory Results - last 24 hr 01/02/18 01/03/18 01/03/18 15:42 06:00 06:00 WBC 10.1 RBC 2.53 L Hgb 8.8 L 8.5 L Hct 25.7 L 24.2 L MCV 95.7 D MCH 33.5 MCHC 35.0 RDW 15.2 Plt Count 234 MPV 7.3 Neut % (Auto) 83.5 H Lymph % (Auto) 4.3 L Reagan % (Auto) 11.5 H Eos % (Auto) 0.6 Baso % (Auto) 0.1 Neut # (Auto) 8.4 H Lymph # (Auto) 0.4 L Reagan # (Auto) 1.2 H Eos # (Auto) 0.1 Baso # (Auto) 0.0 WBC Differential . Differential Comment Auto diff final Sodium 136 Potassium 3.6 Chloride 100 Carbon Dioxide 30.8 Anion Gap 5 BUN 11 Creatinine 0.33 L Estimated GFR Greater than 89 Random Glucose 71 L Calcium 7.7 L D Total Bilirubin 0.4 AST 19 ALT 12 Alkaline Phosphatase 118 H Total Protein 4.9 L D Albumin 1.9 L - Imaging Impressions Head MRI 01/02/18 00:00 CONCLUSION: Scattered probably benign white matter signal changes. No evidence of acute process or metastatic disease. 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 Surgical history includes lobectomy of lung. Patient presented to the emergency room at [facility] with complaints of black stools onset 12/31/2017. Patient endorses abdominal pain that he describes as mild lower abdominal cramping. Patient denies any nausea or vomiting. Of note, patient currently on Eliquis 5 mg p.o. twice daily for history of pulmonary embolism. He states last dose was taken on 12/30/2017 in the p.m. Patient denies any use of aspirin or NSAIDs. He states his family history is not known due to his being adopted. Patient states last colonoscopy was done 5 years ago and reports no polyps were found and findings were unremarkable per patient. Patient denies any difficulty swallowing or odynophagia. He denies any unintended weight loss. Patient does endorse that he drinks socially and denies tobacco use, states he stopped smoking in 2013. Our service has been consulted to evaluate patient for reported black stools. Melena Patient endorses black stools for 2 days. Denies any history of GI bleeding. States he has been on Eliquis for 2-3 months for recent diagnosis of pulmonary embolism. Patient currently receiving chemotherapy and radiation for metastatic esophageal cancer. Patient also endorsing decreased appetite with nausea and denies vomiting. 01/01/2018 CT abdomen and pelvis reveal the following-- 1. Low density liver lesions which were not identified previously 2. Ileus bowel gas pattern 01/02/2018 hemoglobin 9.1 hematocrit 27.2 platelet count 250 INR 1.1 total bilirubin 0.4 AST 25 ALT 17 alk phos 165 Plan -Clear liquid diet -Patient will require EGD-when off Eliquis for 5 days-today is day 3 as per patient -Monitor patient for bleeding -Monitor hemoglobin and hematocrit -Transfuse if needed -Continue PPI -Antiemetic as per attending -Supportive care -Further recommendations to follow This patient has been seen by myself and Dr. Le and this note is written on his behalf - Attending Attestation Dr. Le <Luciana Guillen - Last Filed: 01/02/18 13:30> (1) Acute GI bleeding Status: Acute Code(s): K92.2 - Gastrointestinal hemorrhage, unspecified - Attending Attestation Seen and examined, plan as above. Will need endoscopic examination after holding oral anticoagulant. Further recommendations to follow. <Josie Le - Last Filed: 01/03/18 12:20>
--- NOTE | 2018-01-02 15:16 | MB ---
cc: Ok Sanders MD DATE: 01/02/2018 REQUESTING PHYSICIAN: Hospitalist. REASON FOR CONSULTATION: Evaluation of GI bleed in a patient with metastatic esophageal cancer on Cyramza. 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 The patient was brought into the hospital by the and was admitted through the emergency room. I was asked to evaluate him for further management of his metastatic esophageal cancer and a GI consultation has been requested for the new onset GI bleed. The patient has been on Eliquis for PE for the last 2 months and has not had any prior history of bleeding. REVIEW OF SYSTEMS: The patient's complains that he is quite confused on and off, asking the same questions again and again and he has been losing weight. He has not had any fevers or night sweats. His appetite is poor. He is not eating well according to the and has no cough or hemoptysis, but he does have shortness of breath and has no chest pain. He is weak and losing weight. He has no fevers, chills or night sweats has no abdominal discomfort, but has nausea without vomiting. Black colored stools for the last 2-3 days as mentioned. No constipation or diarrhea. PAST MEDICAL HISTORY: Paroxysmal atrial fibrillation, on Eliquis, chronic respiratory failure with hypoxia, on home oxygen. GE junction adenocarcinoma with metastatic disease, on Cyramza, history of jejunostomy tube placement, history of hydrocele, COPD, hypertension, history of PE 2-3 months ago. PAST SURGICAL HISTORY: Lobectomy for lung. SOCIAL HISTORY: Ex-smoker, uses marijuana, ex alcohol user. FAMILY HISTORY: Noncontributory. MEDICATIONS: List reviewed. He has been on Eliquis until 2 weeks ago. He is off for the last 3 days. This is a third day he is off of Eliquis. PHYSICAL EXAMINATION: GENERAL: Cachectic looking, middle-aged gentleman, appearing much older with evidence of recent weight loss, no acute distress. VITAL SIGNS: Stable. He is afebrile. Pallor present. No icterus. No palpable adenopathy in the neck or axilla. HEENT: Without oropharyngeal bleeding. No petechia or ecchymosis. Alert, oriented x3, intermittently confused, but no meningeal signs. Nonfocal. No JVD. HEART: S1, S2. Regular rate and rhythm with occasional irregularity and grade 2 soft systolic murmur. No gallops or rubs. LUNGS: Clear without crackles, but decreased air entry to the bases posteriorly. ABDOMEN: Scaphoid, soft and nontender without palpable organomegaly. No guarding or free fluid. EXTREMITIES: No edema or evidence of DVTs. LABORATORY DATA: Reviewed. Hemoglobin dropped to 9.1 with hematocrit of 27.2, platelets normal at 215. White count is normal at 9.8. CTA chest reviewed and MRI of the brain reviewed. IMPRESSION: Metastatic esophageal cancer to lungs, on Cyramza after having progressive disease off of chemotherapy, currently with gastrointestinal bleed and no evidence of central nervous system bleed. He will be off the Eliquis and also he will not receive any further Cyramza. The patient's and I already discussed at last hospital office visit that his overall prognosis is poor and that he may not be able to tolerate further chemotherapy and may have to go on supportive care. She is already prepared for that at this point. I rediscussed this with her and she wants him to be on supportive care as far as his oncologic therapy is concerned. For the acute gastrointestinal bleed, gastroenterology consult is on board, and he will have endoscopy after being off of Eliquis for 5 days. Currently is hemodynamically stable and he has no central nervous system bleed. We will continue supportive care and transfusions as needed. He has no evidence of gastrointestinal perforation at this time. As mentioned, gastroenterology is on the case. I will see him also in followup in the hospital. Discussed with the patient and . She is aware of his poor overall prognosis and wishes for no further aggressive oncologic interventions. Ok Sanders MD MVA/ct , 02:12 PM , 02:24 PM
[2018-01-02 16:00] LABS: Hematocrit 25.7 % (39.0-51.0); Hemoglobin 8.8 gm/dL (13.0-17.0)
--- NOTE | 2018-01-02 16:09 | ECG ---
Date Performed: 01/01/2018 Time Performed: 14:36:46 PTAGE: 62 years EKG: SINUS TACHYCARDIA WITH OCCASIONAL SUPRAVENTRICULAR PREMATURE COMPLEXES NONSPECIFIC T-WAVE A BNORMALITY ABNORMAL RHYTHM ECG PREVIOUS TRACING : 11/01/2017 13.44 Since the previous tracing, no significant change noted DOCTOR: Jesus Fernandez Interpretating Date/Time 01/02/2018 16:05:23
[2018-01-02] MEDS: Montelukast 10 MG Tablet PO SCH (22:19)
[2018-01-03] MEDS: oxyCODONE/Acetaminophen 10/325 Tablet PO PRN ×4 (02:25→21:02)
[2018-01-03] MEDS: Dextrose 5%/NaCl 0.45% Inj 1,000 ML IV.CONT SCH ×3 (04:35→22:03)
[2018-01-03 06:14] LABS: Baso % (Auto) 0.1 % (0.0-2.0); Eos # (Auto) 0.1 th/mm3 (0.0-0.4); Eos % (Auto) 0.6 % (0.0-4.0); Hematocrit 24.2 % (39.0-51.0); Hemoglobin 8.5 gm/dL (13.0-17.0); Lymph # (Auto) 0.4 th/mm3 (1.0-4.8); Lymph % (Auto) 4.3 % (9.0-44.0); Mean Corpuscular Hemoglobin 33.5 pg (27.0-34.0); Mean Corpuscular Volume 95.7 fL (80.0-100.0); Mean Platelet Volume 7.3 fL (7.0-11.0); Mono # (Auto) 1.2 th/mm3 (0.0-0.9); Mono % (Auto) 11.5 % (0.0-8.0); Neut # (Auto) 8.4 th/mm3 (1.8-7.7); Neut % (Auto) 83.5 % (16.0-70.0); Platelet Count 234 th/mm3 (150-450); Red Blood Count 2.53 mil/mm3 (4.50-5.90); Red Cell Distribution Width 15.2 % (11.6-17.2); White Blood Count 10.1 th/mm3 (4.0-11.0)
[2018-01-03] MEDS: Pantoprazole Inj 80 MG in Sodium Chlor 0.9% Inj 100 ML IV.CONT SCH ×2 (06:26→15:08)
[2018-01-03 06:42] LABS: Alanine Aminotransferase 12 U/L (12-78); Albumin 1.9 g/dL (3.4-5.0); Alkaline Phosphatase 118 U/L (45-117); Anion Gap 5 meq/L (5-15); Aspartate Aminotransferase 19 U/L (15-37); Blood Urea Nitrogen 11 mg/dL (7-18); Calcium 7.7 mg/dL (8.5-10.1); Carbon Dioxide 30.8 meq/L (21.0-32.0); Chloride 100 meq/L (98-107); Glomerular Filtration Rate Greater Than 89 mL/min (>89); Glucose,Random 71 mg/dL (74-106); Potassium 3.6 meq/L (3.5-5.1); Sodium 136 meq/L (136-145); Total Protein 4.9 g/dL (6.4-8.2)
[2018-01-03] MEDS: Metoprolol Tartrate 25 MG Tablet PO SCH ×2 (08:28→21:03)
[2018-01-03] MEDS: Budesonide-Formoterol 160/4.5 MCG 6 GM Inhaler INH SCH ×2 (08:28→21:04)
[2018-01-03] MEDS: Senna/Docusate Sodium 8.6/50 MG Tablet PO SCH ×2 (08:28→21:03)
[2018-01-03] MEDS ORDERED: Morphine Inj 4 MG/ML Vial IV.PUSH PRN (12:40)
--- NOTE | 2018-01-03 13:00 | P.PNONC ---
Subjective Interval history: Afebrile. Patient lying in bed, in no acute distress. His is at the bedside. She reports the patient has been experiencing anxiety. The patient reports breakthrough pain, reporting that the Percocet does not last for the entire 4 hours. We have discussed morphine for breakthrough pain, patient and his are aware that narcotic pain relievers and Ativan can suppress his respiratory status and we will need to monitor him closely for this. Patient with constant cough, which is productive of yellow thick phlegm. He reports his nebulizer treatments were every 2 hours at home and requests this. Objective Vital Signs/Intake & Output: Vital Signs 01/02/18 19:32 01/02/18 20:25 01/02/18 23:28 Temperature 97.4 F L 98.3 F Pulse Rate 100 H 84 84 Respiratory Rate 16 18 12 Blood Pressure 102/56 L 97/63 L Pulse Oximetry 91 L 92 L 91 L 01/03/18 02:55 01/03/18 03:14 01/03/18 04:00 Temperature 98.3 F Pulse Rate 101 H 97 H 94 H Respiratory Rate 20 16 Blood Pressure 96/78 L Pulse Oximetry 99 01/03/18 08:00 01/03/18 09:00 01/03/18 11:40 Temperature 98.1 F 97.8 F Pulse Rate 97 H 92 H 107 H Respiratory Rate 20 18 Blood Pressure 97/75 L 92/69 L Pulse Oximetry 99 92 L Intake & Output 01/02/18 01/03/18 01/03/18 18:59 06:59 18:59 Intake Total 1000 / 1000 1000 / 1000 1000 / 1000 Balance 1000 / 1000 1000 / 1000 1000 / 1000 Weight 50.1 kg Intake: IV 1000 / 1000 1000 / 1000 1000 / 1000 D5W/1/2 NS Inj 1,000 ML @ 100 1000 / 1000 1000 / 1000 1000 / 1000 mls/hr IV.CONT .Q10H [facility] Rx#: [id number] Other: Date of Last Bowel Movement 12/31/17 01/01/18 01/01/18 Result Diagrams: 01/03/18 06:00 01/03/18 06:00 Laboratory Results: Laboratory Results - last 24 hr 01/02/18 01/03/18 01/03/18 15:42 06:00 06:00 WBC 10.1 RBC 2.53 L Hgb 8.8 L 8.5 L Hct 25.7 L 24.2 L MCV 95.7 D MCH 33.5 MCHC 35.0 RDW 15.2 Plt Count 234 MPV 7.3 Neut % (Auto) 83.5 H Lymph % (Auto) 4.3 L Millard % (Auto) 11.5 H Eos % (Auto) 0.6 Baso % (Auto) 0.1 Neut # (Auto) 8.4 H Lymph # (Auto) 0.4 L Millard # (Auto) 1.2 H Eos # (Auto) 0.1 Baso # (Auto) 0.0 WBC Differential . Differential Comment Auto diff final Sodium 136 Potassium 3.6 Chloride 100 Carbon Dioxide 30.8 Anion Gap 5 BUN 11 Creatinine 0.33 L Estimated GFR Greater than 89 Random Glucose 71 L Calcium 7.7 L D Total Bilirubin 0.4 AST 19 ALT 12 Alkaline Phosphatase 118 H Total Protein 4.9 L D Albumin 1.9 L Medications: Active Medications Generic Name Dose Route Start Last Admin Trade Name Freq PRN Reason Stop Dose Admin Atorvastatin Calcium 40 mg 01/01/18 20:00 01/02/18 18:01 Lipitor PO 40 mg QPM [facility] Administration Budesonide/Formoterol Fumarate 2 puff 01/01/18 21:00 01/03/18 08:28 Symbicort 160/4.5 Mcg Inh INH 2 puff BID [facility] Administration Diltiazem HCl 120 mg 01/01/18 20:00 01/02/18 20:27 Cardizem Cd 24hr PO Not Given Q24H [facility] Pantoprazole Sodium 80 mg/ 100 mls @ 10 mls/hr 01/01/18 15:00 01/03/18 06:26 Sodium Chloride IV.CONT 10 mls/hr CONT [facility] Administration Dextrose/Sodium Chloride 1,000 mls @ 100 mls/hr 01/01/18 21:00 01/03/18 12:29 D5w/1/2 Ns Inj IV.CONT 100 mls/hr .Q10H [facility] Administration Lorazepam 1 mg 01/02/18 10:01 01/02/18 11:21 Ativan Inj IV.PUSH 1 mg ONCE PRN Administration 15 minutes prior to MRI Metoprolol Tartrate 25 mg 01/01/18 21:00 01/03/18 08:28 Lopressor PO Not Given BID [facility] Montelukast Sodium 10 mg 01/02/18 20:00 01/02/18 22:19 Singulair PO 10 mg QPM [facility] Administration Multivitamins 1 tab 01/02/18 09:00 01/03/18 08:28 Theragran PO 1 tab DAILY [facility] Administration Oxycodone/Acetaminophen 1 tab 01/01/18 18:27 01/03/18 12:27 Percocet 10/325 Mg PO 1 tab Q4H PRN Administration Pain 1-10 Senna/Docusate Sodium 1 tab 01/01/18 21:00 01/03/18 08:28 Jammie-Colace PO Not Given BID [facility] Tiotropium Polo 18 mcg 01/01/18 20:00 01/02/18 22:19 Spiriva 18 Mcg Inh INH 18 mcg Q24H [facility] Administration Vitamin D 4,000 unit 01/01/18 20:00 01/02/18 21:48 Vitamin D3 PO Not Given Q24H [facility] Objective Remarks: GENERAL: Cachectic, ill-appearing gentleman, in no acute distress. SKIN: Warm and dry. HEAD: Normocephalic. EYES: No scleral icterus. No injection or drainage. NECK: Supple, trachea midline. CARDIOVASCULAR: Regular rate and rhythm without murmurs. RESPIRATORY: Coarse crackles throughout. No accessory muscle use. O2 via nasal cannula. GASTROINTESTINAL: Abdomen soft, non-tender, nondistended. EXTREMITIES: No cyanosis, or edema. MUSCULOSKELETAL: + Muscle wasting. NEUROLOGICAL: No obvious focal deficit. Awake, alert, and oriented x3. PSYCHIATRIC: Appropriate mood and affect; insight and judgment normal. Assessment/Plan - Plan Mr. Barajas is a 62-year-old gentleman with metastatic esophageal cancer, being treated with Cyramza 2 weeks ago. Currently hospitalized for GI bleed. Patient was on Eliquis for pulmonary embolism for the last 2 months. Recommendations: 1. Metastatic esophageal cancer, status post Cyramza 2 weeks ago. Patient has poor performance status and will be unable to tolerate further chemotherapy. He will receive supportive care only from oncology. 2. GI bleed, Eliquis has been stopped and GI is following. Plan for endoscopy once off Eliquis times 5 days. According to the patient, today is day #4. 3. Anxiety, Ativan 0.5 mg every 6 as needed anxiety. Patient and aware of possible complications, which include respiratory depression. 4. Abdominal pain, currently on Percocet every 4 hours, patient with breakthrough pain. IV morphine 4 mg q 4hrs prn breakthrough pain. 5. Monitor for oversedation, do not give pain medications while patient is sleeping. Monitor respiratory status. - Attending Statement Pt seen in Rm 283; stable but weak. Wnats to go home [facility]. 4 th day off Eliquis - ? EGD tomorrow. Slow drift in Hb noted; no acute drop. Pt relatively asymptomatic. PE negative for acute abdomen. No evidence of GI perforation from Cyramza. UGI bleed secondary to Elliquis. EGD by GI ? tomorrow. Further recommendations after that. Transfuse RBCs if pt becomes symptomatic. Willl f/u.
--- NOTE | 2018-01-03 15:58 | P.PN ---
Subjective Interval history: periumbilical pain- stabbing - but appears comfortable "same" no nausea or vomiting no further reported melena or hematochezia tolerating clears- wanting to eat- scope not scheduled till possibly Monday- has to be off Eliquis for at least 5 days teleemtry reviewed- intermittent a fib Physical Exam Vital signs: Vital Signs 01/02/18 19:32 01/02/18 20:25 01/02/18 23:28 Temperature 97.4 F L 98.3 F Pulse Rate 100 H 84 84 Respiratory Rate 16 18 12 Blood Pressure 102/56 L 97/63 L Pulse Oximetry 91 L 92 L 91 L 01/03/18 02:55 01/03/18 03:14 01/03/18 04:00 Temperature 98.3 F Pulse Rate 101 H 97 H 94 H Respiratory Rate 20 16 Blood Pressure 96/78 L Pulse Oximetry 99 01/03/18 08:00 01/03/18 09:00 01/03/18 11:40 Temperature 98.1 F 97.8 F Pulse Rate 97 H 92 H 107 H Respiratory Rate 20 18 Blood Pressure 97/75 L 92/69 L Pulse Oximetry 99 92 L 01/03/18 15:06 Temperature 98.9 F Pulse Rate 90 Respiratory Rate 22 Blood Pressure 102/69 Pulse Oximetry 100 Intake & Output 01/02/18 01/03/18 01/03/18 18:59 06:59 18:59 Intake Total 1000 / 1000 1000 / 1000 1100 / 1100 Balance 1000 / 1000 1000 / 1000 1100 / 1100 Weight 50.1 kg Intake: IV 1000 / 1000 1000 / 1000 1100 / 1100 D5W/1/2 NS Inj 1,000 ML @ 100 1000 / 1000 1000 / 1000 1000 / 1000 mls/hr IV.CONT .Q10H [facility] Rx#: [id number] Protonix Inj 80 MG In NS Inj 100 / 100 100 ML @ 10 mls/hr IV.CONT CONT [facility] Rx#:[id number] Other: Date of Last Bowel Movement 12/31/17 01/01/18 01/01/18 Narrative: GENERAL: NAD, A&Ox3 HEAD: Normocephalic. NECK: Supple EYES: No scleral icterus. No injection or drainage. CARDIOVASCULAR: irregular rhythm gallops, or rubs. RESPIRATORY: Breath sounds equal bilaterally. No accessory muscle use. GASTROINTESTINAL: Abdomen soft, non-tender, nondistended. MUSCULOSKELETAL: No cyanosis, or edema. SKIN: Warm and dry. NEURO: No focal neurological deficits. Results - Labs CBC & Chem 7: 01/03/18 06:00 01/03/18 06:00 Laboratory Results - last 24 hr 01/02/18 01/03/18 01/03/18 15:42 06:00 06:00 WBC 10.1 RBC 2.53 L Hgb 8.8 L 8.5 L Hct 25.7 L 24.2 L MCV 95.7 D MCH 33.5 MCHC 35.0 RDW 15.2 Plt Count 234 MPV 7.3 Neut % (Auto) 83.5 H Lymph % (Auto) 4.3 L Brown % (Auto) 11.5 H Eos % (Auto) 0.6 Baso % (Auto) 0.1 Neut # (Auto) 8.4 H Lymph # (Auto) 0.4 L Brown # (Auto) 1.2 H Eos # (Auto) 0.1 Baso # (Auto) 0.0 WBC Differential . 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 fib, Elequis now on hold Eliquis has been stopped and GI is following. Plan for endoscopy once off Eliquis times 5 days. According to the patient, today is day #4. Continue Protonix GI following Possible EGD- Monday advance diet to soft Gastroesophageal adenocarcinoma Metastatic esophageal cancer, status post Cyramza 2 weeks ago. Patient has poor performance status and will be unable to tolerate further chemotherapy. He will receive supportive care only from oncology.Heme oncology following Ileus- resolved - on clears- toelrating- advance to soft diet Pulmonary embolism Eliquis on hold for now Follow clinically Chronic hypoxic respiratory failure- no distress COPD Continue oxygen supplementation Follow oxygen levels Hyperlipidemia Continue present treatment Follow as an outpatient Atrial fibrillation- intermittent- now on telemetry- a fib- rate controlled Continue atenolol Continue Cardizem Eliquis on hold Right lower extremity weakness- strong today MRI of brain unremarkable Evaluation for metastatic disease as etiology Low BMI Calorie deficit malnutrition Related to cancer Related to esophageal mass Pericardial effusion May be related to cancer Follow clinically No evidence of tamponade at this point DVT prophylaxis SCDs Anticoagulation contraindicated Anxiety - Ativan 0.5 mg every 6 as needed anxiety. Patient and aware of possible complications, which include respiratory depression./Oncology Abdominal pain, currently on Percocet every 4 hours, patient with breakthrough pain. IV morphine 2 mg q 4hrs prn breakthrough pain. - Monitor for oversedation, do not give pain medications while patient is sleeping. Monitor respiratory status.
[2018-01-03] MEDS: Montelukast 10 MG Tablet PO SCH (17:29)
[2018-01-03] MEDS: dilTIAZem CD 120 MG Capsule PO SCH (21:03)
[2018-01-03] MEDS: Tiotropium Bromide 18 MCG/ACT Inhaler INH SCH (21:04)
[2018-01-04] MEDS: Pantoprazole Inj 80 MG in Sodium Chlor 0.9% Inj 100 ML IV.CONT SCH ×2 (01:05→13:46)
[2018-01-04] MEDS: oxyCODONE/Acetaminophen 10/325 Tablet PO PRN ×5 (02:15→21:50)
[2018-01-04] MEDS: Dextrose 5%/NaCl 0.45% Inj 1,000 ML IV.CONT SCH ×3 (03:12→21:52)
[2018-01-04] MEDS: Metoprolol Tartrate 25 MG Tablet PO SCH ×2 (09:04→20:25)
[2018-01-04] MEDS: Senna/Docusate Sodium 8.6/50 MG Tablet PO SCH ×2 (09:05→20:31)
[2018-01-04] MEDS: Budesonide-Formoterol 160/4.5 MCG 6 GM Inhaler INH SCH ×2 (12:51→20:29)
--- NOTE | 2018-01-04 14:16 | P.PN ---
Subjective Interval history: awake and alert, toelrating po very well,. no nausea or vomting states still with abdominal discomfort but appears comfortable, abdominal exam benign states minimal black stools Physical Exam Vital signs: Vital Signs 01/03/18 15:06 01/03/18 19:00 01/03/18 19:25 Temperature 98.9 F 98 F Pulse Rate 90 90 102 H Respiratory Rate 22 20 Blood Pressure 102/69 103/74 Pulse Oximetry 100 100 01/03/18 23:00 01/04/18 00:00 01/04/18 02:23 Temperature 97.5 F L Pulse Rate 90 84 89 Respiratory Rate 21 22 Blood Pressure 89/64 L Pulse Oximetry 99 01/04/18 03:00 01/04/18 04:00 01/04/18 08:00 Temperature 98.1 F 98.0 F Pulse Rate 91 H 78 86 Respiratory Rate 20 15 Blood Pressure 94/62 L 92/59 L Pulse Oximetry 99 98 01/04/18 12:55 01/04/18 13:00 Temperature 98.9 F Pulse Rate 97 H 78 Respiratory Rate 16 16 Blood Pressure 86/63 L Pulse Oximetry 98 99 Intake & Output 01/03/18 01/04/18 01/04/18 18:59 06:59 18:59 Intake Total 1100 / 1100 1340 / 1340 1000 / 1000 Output Total 500 / 500 350 / 350 Balance 600 / 600 990 / 990 1000 / 1000 Weight 50 kg Intake: IV 1100 / 1100 1100 / 1100 1000 / 1000 D5W/1/2 NS Inj 1,000 ML @ 100 1000 / 1000 1000 / 1000 1000 / 1000 mls/hr IV.CONT .Q10H [facility] Rx#: [id number] Protonix Inj 80 MG In NS Inj 100 / 100 100 / 100 100 ML @ 10 mls/hr IV.CONT CONT [facility] Rx#:[id number] Oral 240 / 240 Output: Urine 500 / 500 350 / 350 Other: Date of Last Bowel Movement 01/01/18 01/01/18 Narrative: GENERAL: NAD, A&Ox3 HEAD: Normocephalic. NECK: Supple EYES: No scleral icterus. No injection or drainage. CARDIOVASCULAR: Regular rate and rhythm without murmurs, gallops, or rubs. RESPIRATORY: Breath sounds equal bilaterally. No accessory muscle use. GASTROINTESTINAL: Abdomen soft, non-tender, nondistended. good bowel sounds MUSCULOSKELETAL: No cyanosis, or edema. SKIN: Warm and dry. NEURO: No focal neurological deficits. 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 fib, Elequis now on hold Eliquis has been stopped and GI is following. Plan for endoscopy once off Eliquis times 5 days. According to the patient, today is day #4. Continue Protonix GI following Possible EGD- Monday advance diet to soft NPO post midnight check stat CBC now Gastroesophageal adenocarcinoma Metastatic esophageal cancer, status post Cyramza 2 weeks ago. Patient has poor performance status and will be unable to tolerate further chemotherapy. He will receive supportive care only from oncology.Heme oncology following Ileus- resolved - on clears- toelrating- advance to soft diet Pulmonary embolism Eliquis on hold for now Follow clinically Chronic hypoxic respiratory failure- no distress COPD Continue oxygen supplementation Follow oxygen levels Hyperlipidemia Continue present treatment Follow as an outpatient Atrial fibrillation- currently on telemetry - in SR with occasinal PAcs Continue atenolol Continue Cardizem Eliquis on hold Right lower extremity weakness MRI of brain unremarkable Evaluation for metastatic disease as etiology Low BMI Calorie deficit malnutrition Related to cancer Related to esophageal mass Pericardial effusion May be related to cancer Follow clinically No evidence of tamponade at this point DVT prophylaxis SCDs Anticoagulation contraindicated Anxiety - Ativan 0.5 mg every 6 as needed anxiety. Patient and aware of possible complications, which include respiratory depression./Oncology Abdominal pain- but exam benign currently on Percocet every 4 hours, patient with breakthrough pain. IV morphine 4 mg q 4hrs prn breakthrough pain. - Monitor for oversedation, do not give pain medications while patient is sleeping. Monitor respiratory status.
[2018-01-04 14:50] LABS: Baso % (Auto) 0.2 % (0.0-2.0); Eos % (Auto) 0.5 % (0.0-4.0); Hematocrit 23.1 % (39.0-51.0); Hemoglobin 7.8 gm/dL (13.0-17.0); Lymph # (Auto) 0.3 th/mm3 (1.0-4.8); Lymph % (Auto) 2.7 % (9.0-44.0); Mean Corpuscular HGB Conc 33.6 % (32.0-36.0); Mean Corpuscular Hemoglobin 33.2 pg (27.0-34.0); Mean Platelet Volume 7.3 fL (7.0-11.0); Mono # (Auto) 1.1 th/mm3 (0.0-0.9); Mono % (Auto) 11.2 % (0.0-8.0); Neut # (Auto) 8.5 th/mm3 (1.8-7.7); Neut % (Auto) 85.4 % (16.0-70.0); Platelet Count 201 th/mm3 (150-450); Red Blood Count 2.34 mil/mm3 (4.50-5.90); Red Cell Distribution Width 15.6 % (11.6-17.2); White Blood Count 9.9 th/mm3 (4.0-11.0)
[2018-01-04] MEDS ORDERED: Morphine Sulfate Inj 2 MG/ML Vial IV.PUSH PRN (15:00)
--- NOTE | 2018-01-04 15:39 | P.PNONC ---
Subjective Interval history: Patient lying in bed, his is at the bedside. The patient reports continued intermittent dyspnea. He has questions if he will have the EGD tomorrow, stating he has not seen anyone from GI. This evening would be is fifth day off of Eliquis. He remains with abdominal tenderness. No nausea noted today. Objective Vital Signs/Intake & Output: Vital Signs 01/03/18 19:00 01/03/18 19:25 01/03/18 23:00 Temperature 98 F Pulse Rate 90 102 H 90 Respiratory Rate 20 Blood Pressure 103/74 Pulse Oximetry 100 01/04/18 00:00 01/04/18 02:23 01/04/18 03:00 Temperature 97.5 F L Pulse Rate 84 89 91 H Respiratory Rate 21 22 Blood Pressure 89/64 L Pulse Oximetry 99 01/04/18 04:00 01/04/18 08:00 01/04/18 12:55 Temperature 98.1 F 98.0 F 98.9 F Pulse Rate 78 86 97 H Respiratory Rate 20 15 16 Blood Pressure 94/62 L 92/59 L 86/63 L Pulse Oximetry 99 98 98 01/04/18 13:00 01/04/18 13:20 Temperature Pulse Rate 78 Respiratory Rate 16 Blood Pressure 93/57 L Pulse Oximetry 99 Intake & Output 01/03/18 01/04/18 01/04/18 18:59 06:59 18:59 Intake Total 1100 / 1100 1340 / 1340 1100 / 1100 Output Total 500 / 500 350 / 350 Balance 600 / 600 990 / 990 1100 / 1100 Weight 50 kg Intake: IV 1100 / 1100 1100 / 1100 1100 / 1100 D5W/1/2 NS Inj 1,000 ML @ 100 1000 / 1000 1000 / 1000 1000 / 1000 mls/hr IV.CONT .Q10H SAYRA Rx#: [id number] Protonix Inj 80 MG In NS Inj 100 / 100 100 / 100 100 / 100 100 ML @ 10 mls/hr IV.CONT CONT SAYRA Rx#:[id number] Oral 240 / 240 Output: Urine 500 / 500 350 / 350 Other: Date of Last Bowel Movement 01/01/18 01/01/18 Result Diagrams: 01/04/18 14:40 01/03/18 06:00 Laboratory Results: Laboratory Results - last 24 hr 01/04/18 14:40 WBC 9.9 RBC 2.34 L Hgb 7.8 L Hct 23.1 L MCV 99.0 MCH 33.2 MCHC 33.6 RDW 15.6 Plt Count 201 MPV 7.3 Neut % (Auto) 85.4 H Lymph % (Auto) 2.7 L [place] % (Auto) 11.2 H Eos % (Auto) 0.5 Baso % (Auto) 0.2 Neut # (Auto) 8.5 H Lymph # (Auto) 0.3 L [place] # (Auto) 1.1 H Eos # (Auto) 0.0 Baso # (Auto) 0.0 WBC Differential . Differential Comment Auto diff final Medications: Active Medications Generic Name Dose Route Start Last Admin Trade Name Freq PRN Reason Stop Dose Admin Albuterol 1 ampul 01/03/18 11:50 01/04/18 12:58 Duoneb Neb (Prn) NEB 1 ampul Q2HR NEB PRN Administration SHORTNESS OF BREATH Atorvastatin Calcium 40 mg 01/01/18 20:00 01/03/18 17:29 Lipitor PO 40 mg QPM SAYRA Administration Budesonide/Formoterol Fumarate 2 puff 01/01/18 21:00 01/04/18 12:51 Symbicort 160/4.5 Mcg Inh INH 2 puff BID SAYRA Administration Diltiazem HCl 120 mg 01/01/18 20:00 01/03/18 21:03 Cardizem Cd 24hr PO 120 mg Q24H SAYRA Administration Pantoprazole Sodium 80 mg/ 100 mls @ 10 mls/hr 01/01/18 15:00 01/04/18 13:46 Sodium Chloride IV.CONT 10 mls/hr CONT SAYRA Administration Dextrose/Sodium Chloride 1,000 mls @ 100 mls/hr 01/01/18 21:00 01/04/18 12:48 D5w/1/2 Ns Inj IV.CONT 100 mls/hr .Q10H SAYRA Administration Metoprolol Tartrate 25 mg 01/01/18 21:00 01/04/18 09:04 Lopressor PO Not Given BID SAYRA Montelukast Sodium 10 mg 01/02/18 20:00 01/03/18 17:29 Singulair PO 10 mg QPM SAYRA Administration Multivitamins 1 tab 01/02/18 09:00 01/04/18 09:05 Theragran PO 1 tab DAILY SAYRA Administration Oxycodone/Acetaminophen 1 tab 01/01/18 18:27 01/04/18 13:29 Percocet 10/325 Mg PO 1 tab Q4H PRN Administration Pain 1-10 Senna/Docusate Sodium 1 tab 01/01/18 21:00 01/04/18 09:05 Jammie-Colace PO 1 tab BID SAYRA Administration Tiotropium [place] 18 mcg 01/01/18 20:00 01/03/18 21:04 Spiriva 18 Mcg Inh INH 18 mcg Q24H SAYRA Administration Vitamin D 4,000 unit 01/01/18 20:00 01/03/18 21:02 Vitamin D3 PO 4,000 unit Q24H SAYRA Administration Objective Remarks: GENERAL: Cachectic, ill-appearing gentleman, in no acute distress. SKIN: Warm and dry. HEAD: Normocephalic. EYES: No scleral icterus. No injection or drainage. NECK: Supple, trachea midline. CARDIOVASCULAR: Regular rate and rhythm without murmurs. RESPIRATORY: Coarse crackles throughout. No accessory muscle use. O2 via nasal cannula. GASTROINTESTINAL: Abdomen soft, tender upper quadrants, nondistended, mild guarding. EXTREMITIES: No cyanosis, or edema. MUSCULOSKELETAL: + Muscle wasting. NEUROLOGICAL: No obvious focal deficit. Awake, alert, and oriented x3. PSYCHIATRIC: Appropriate mood and affect; insight and judgment normal. Assessment/Plan - Plan Mr. Barajas is a 62-year-old gentleman with metastatic esophageal cancer, being treated with Cyramza 2 weeks ago. Currently hospitalized for GI bleed. Patient was on Eliquis for pulmonary embolism for the last 2 months. Recommendations: 1. Metastatic esophageal cancer, status post Cyramza 2 weeks ago. Patient has poor performance status and will be unable to tolerate further chemotherapy. He will receive supportive care only from oncology. 2. GI bleed, Eliquis has been stopped and GI is following. Plan for endoscopy once off Eliquis times 5 days. According to the patient, today is day #5. 3. Monitor for oversedation, do not give pain medications while patient is sleeping. Monitor respiratory status. 4. Hemoglobin continues to trend down, continue to monitor transfuse PRBC for hemoglobin less than 7.5 gm/dL. 5. Repeat CBC in the a.m.
--- NOTE | 2018-01-04 16:27 | P.DIET ---
Nutritional Evaluation Type of nutrition evaluation: initial Nutrition consult regarding: Diet Evaluation Nutrition screening: Weight Loss > 10 lbs, [facility] [place]iet educ[place]) Screening comments: 01/01 WLS, diet education Objective - Diagnosis acute GI bleed, SOB, cancer patient - Objective Body Mass Index: 16.3 % IBW: 69 (IBW = 160lb) Body Weight Used for Calculations: Actual (50.1kg) Energy Needs - Lower Range (kCal/kg): 40 Energy Needs - Upper Range (kCal/kg): 45 Lower Limit kCal/kg (kCals): 2,004 Upper Limit kCal/kg (kCals): 2,255 Lower Limit Protein Factor (Grams per Kg): 1.2 Upper Limit Protein Factor (Grams per Kg): 1.4 Lower Protein Needs (Protein): 60 Upper Protein Needs (Protein): 70 Dietitian Reviewed in Medical Record: Current diet, Curent medications, Intake & Output, Labs, Medical history Diet Order: soft Oral Diet Intake Amount: Poor <50% Objective Comments: PMH: adenocarcinoma of gastroesophageal junction, 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 Per MD note, pt stated he had poor PO intake for 3 days before coming in. Pt is consuming a soft diet now, eating around 25-50% of most meals. RD to recommend Ensure Enlive TID for pt as a PO supplement for additional nutrition. Continue to monitor PO intake and tolerance. Labs reviewed , dietitian following. Pt also had diet education questions. RD provided printed materials regarding gaining wt for cancer pts. Pt was attentive and asked questions. Recommendations: 1. RD to recommend Ensure Enlive TID for pt as a PO supplement for additional nutrition 2. Continue to monitor PO intake and tolerance 3. Dietitian following Dietitian to Monitor: Lab values, Glucose level, Supplement acceptance, Intake & Output, Diet tolerance, PO Intake, Medical course
--- NOTE | 2018-01-04 17:20 | P.PNGI ---
Subjective Interval history: Patient sitting up in bed Denies discomfort Day 5 of Eliquis Plan for EGD in a.m. <Luciana Guillen - Last Filed: 01/04/18 17:17> Physical Exam Vital signs: Vital Signs 01/03/18 19:00 01/03/18 19:25 01/03/18 23:00 Temperature 98 F Pulse Rate 90 102 H 90 Respiratory Rate 20 Blood Pressure 103/74 Pulse Oximetry 100 01/04/18 00:00 01/04/18 02:23 01/04/18 03:00 Temperature 97.5 F L Pulse Rate 84 89 91 H Respiratory Rate 21 22 Blood Pressure 89/64 L Pulse Oximetry 99 01/04/18 04:00 01/04/18 08:00 01/04/18 12:55 Temperature 98.1 F 98.0 F 98.9 F Pulse Rate 78 86 97 H Respiratory Rate 20 15 16 Blood Pressure 94/62 L 92/59 L 86/63 L Pulse Oximetry 99 98 98 01/04/18 13:00 01/04/18 13:20 01/04/18 16:42 Temperature Pulse Rate 78 97 H Respiratory Rate 16 18 Blood Pressure 93/57 L Pulse Oximetry 99 Intake & Output 01/03/18 01/04/18 01/04/18 18:59 06:59 18:59 Intake Total 1100 / 1100 1340 / 1340 1100 / 1100 Output Total 500 / 500 350 / 350 Balance 600 / 600 990 / 990 1100 / 1100 Weight 50 kg Intake: IV 1100 / 1100 1100 / 1100 1100 / 1100 D5W/1/2 NS Inj 1,000 ML @ 100 1000 / 1000 1000 / 1000 1000 / 1000 mls/hr IV.CONT .Q10H SAYRA Rx#: [id number] Protonix Inj 80 MG In NS Inj 100 / 100 100 / 100 100 / 100 100 ML @ 10 mls/hr IV.CONT CONT SAYRA Rx#:[id number] Oral 240 / 240 Output: Urine 500 / 500 350 / 350 Other: Date of Last Bowel Movement 01/01/18 01/01/18 - Constitutional no acute distress - Routine HEENT Exam Head: Present: normocephalic - Routine Respiratory Exam Present: CTA bilaterally - Routine Abdominal Exam Present: soft, normoactive bowel sounds. Absent: tenderness - Routine Skin Exam Present: dry, warm - Routine Neurological Exam Present: alert - Routine Psychiatric Exam Present: normal affect, cooperative <Luciana Guillen - Last Filed: 01/04/18 17:17> Vital signs: Vital Signs 01/03/18 23:00 01/04/18 00:00 01/04/18 02:23 Temperature 97.5 F L Pulse Rate 90 84 89 Respiratory Rate 21 22 Blood Pressure 89/64 L Pulse Oximetry 99 01/04/18 03:00 01/04/18 04:00 01/04/18 08:00 Temperature 98.1 F 98.0 F Pulse Rate 91 H 78 86 Respiratory Rate 20 15 Blood Pressure 94/62 L 92/59 L Pulse Oximetry 99 98 01/04/18 12:00 01/04/18 12:55 01/04/18 13:00 Temperature 98.9 F Pulse Rate 81 97 H 78 Respiratory Rate 16 16 Blood Pressure 86/63 L Pulse Oximetry 98 99 01/04/18 13:20 01/04/18 16:00 01/04/18 16:42 Temperature Pulse Rate 92 H 97 H Respiratory Rate 18 Blood Pressure 93/57 L Pulse Oximetry 01/04/18 17:39 01/04/18 19:43 01/04/18 20:00 Temperature 99.1 F 98.1 F Pulse Rate 77 102 H 96 H Respiratory Rate 16 20 16 Blood Pressure 92/59 L 95/55 L Pulse Oximetry 97 97 97 Intake & Output 01/04/18 01/04/18 01/05/18 06:59 18:59 06:59 Intake Total 1340 / 1340 1100 / 1100 480 / 480 Output Total 350 / 350 775 / 775 Balance 990 / 990 1100 / 1100 -295 / -295 Weight 50 kg Intake: IV 1100 / 1100 1100 / 1100 D5W/1/2 NS Inj 1,000 ML @ 100 1000 / 1000 1000 / 1000 mls/hr IV.CONT .Q10H SAYRA Rx#: [id number] Protonix Inj 80 MG In NS Inj 100 / 100 100 / 100 100 ML @ 10 mls/hr IV.CONT CONT SAYRA Rx#:[id number] Oral 240 / 240 480 / 480 Output: Urine 350 / 350 775 / 775 Other: Date of Last Bowel Movement 01/01/18 01/04/18 # Bowel Movements 1 <Josie Le - Last Filed: 01/04/18 20:48> Results - Labs CBC & Chem 7: 01/04/18 14:40 01/03/18 06:00 Laboratory Results - last 24 hr 01/04/18 14:40 WBC 9.9 RBC 2.34 L Hgb 7.8 L Hct 23.1 L MCV 99.0 MCH 33.2 MCHC 33.6 RDW 15.6 Plt Count 201 MPV 7.3 Neut % (Auto) 85.4 H Lymph % (Auto) 2.7 L [place] % (Auto) 11.2 H Eos % (Auto) 0.5 Baso % (Auto) 0.2 Neut # (Auto) 8.5 H Lymph # (Auto) 0.3 L [place] # (Auto) 1.1 H Eos # (Auto) 0.0 Baso # (Auto) 0.0 WBC Differential . Differential Comment Auto diff final <Luciana Guillen - Last Filed: 01/04/18 17:17> - Labs CBC & Chem 7: 01/04/18 14:40 01/03/18 06:00 Laboratory Results - last 24 hr 01/04/18 14:40 WBC 9.9 RBC 2.34 L Hgb 7.8 L Hct 23.1 L MCV 99.0 MCH 33.2 MCHC 33.6 RDW 15.6 Plt Count 201 MPV 7.3 Neut % (Auto) 85.4 H Lymph % (Auto) 2.7 L [place] % (Auto) 11.2 H Eos % (Auto) 0.5 Baso % (Auto) 0.2 Neut # (Auto) 8.5 H Lymph # (Auto) 0.3 L [place] # (Auto) 1.1 H Eos # (Auto) 0.0 Baso # (Auto) 0.0 WBC Differential . 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 Surgical history includes lobectomy of lung. Patient presented to the emergency room at [facility] with complaints of black stools onset 12/31/2017. Patient endorses abdominal pain that he describes as mild lower abdominal cramping. Patient denies any nausea or vomiting. Of note, patient currently on Eliquis 5 mg p.o. twice daily for history of pulmonary embolism. He states last dose was taken on 12/30/2017 in the p.m. Patient denies any use of aspirin or NSAIDs. He states his family history is not known due to his being adopted. Patient states last colonoscopy was done 5 years ago and reports no polyps were found and findings were unremarkable per patient. Patient denies any difficulty swallowing or odynophagia. He denies any unintended weight loss. Patient does endorse that he drinks socially and denies tobacco use, states he stopped smoking in 2013. Our service has been consulted to evaluate patient for reported black stools. Melena Patient endorses black stools for 2 days. Denies any history of GI bleeding. States he has been on Eliquis for 2-3 months for recent diagnosis of pulmonary embolism. Patient currently receiving chemotherapy and radiation for metastatic esophageal cancer. Patient also endorsing decreased appetite with nausea and denies vomiting. 01/01/2018 CT abdomen and pelvis reveal the following-- 1. Low density liver lesions which were not identified previously 2. Ileus bowel gas pattern 01/02/2018 hemoglobin 9.1 hematocrit 27.2 platelet count 250 INR 1.1 total bilirubin 0.4 AST 25 ALT 17 alk phos 165 01/04/2018 No reported bleeding Patient reports stools are dark brown Day 5 off Eliquis for recent diagnosis of pulmonary embolism Plan EGD for a.m. Hemoglobin 7.8 hematocrit 23.1 Plan -Regular diet -N.p.o. after midnight -EGD on 01/05/2018 today's day 5 off Eliquis -Monitor for bleeding -Monitor hemoglobin hematocrit -Transfuse if needed -PPI -Supportive care -Further recommendations to follow This patient has been seen by myself and Dr. Le and this note is written on his behalf - Attending Attestation Rey <Luciana Guillen - Last Filed: 01/04/18 17:17> (1) Acute GI bleeding Status: Acute Code(s): K92.2 - Gastrointestinal hemorrhage, unspecified - Attending Attestation Seen and examined, plan as above. Will schedule EGD tomorrow. Further recommendations to follow. <Josie Le - Last Filed: 01/04/18 20:48>
[2018-01-04] MEDS: Montelukast 10 MG Tablet PO SCH (17:46)
[2018-01-04] MEDS: dilTIAZem CD 120 MG Capsule PO SCH (20:24)
[2018-01-04] MEDS: Tiotropium Bromide 18 MCG/ACT Inhaler INH SCH (20:26)
[2018-01-05] MEDS: Pantoprazole Inj 80 MG in Sodium Chlor 0.9% Inj 100 ML IV.CONT SCH (05:27)
[2018-01-05 05:38] LABS: Baso # (Auto) 0.1 th/mm3 (0.0-0.2); Baso % (Auto) 0.7 % (0.0-2.0); Eos # (Auto) 0.1 th/mm3 (0.0-0.4); Eos % (Auto) 1.2 % (0.0-4.0); Lymph # (Auto) 0.3 th/mm3 (1.0-4.8); Lymph % (Auto) 2.8 % (9.0-44.0); Mean Corpuscular HGB Conc 34.9 % (32.0-36.0); Mean Corpuscular Hemoglobin 33.6 pg (27.0-34.0); Mean Corpuscular Volume 96.3 fL (80.0-100.0); Mean Platelet Volume 8.2 fL (7.0-11.0); Mono # (Auto) 1.4 th/mm3 (0.0-0.9); Mono % (Auto) 15.1 % (0.0-8.0); Neut # (Auto) 7.4 th/mm3 (1.8-7.7); Neut % (Auto) 80.2 % (16.0-70.0); Platelet Count 155 th/mm3 (150-450); Red Blood Count 2.39 mil/mm3 (4.50-5.90); Red Cell Distribution Width 15.6 % (11.6-17.2); White Blood Count 9.2 th/mm3 (4.0-11.0)
[2018-01-05] MEDS: Senna/Docusate Sodium 8.6/50 MG Tablet PO SCH ×2 (08:00→20:16)
[2018-01-05] MEDS: Metoprolol Tartrate 25 MG Tablet PO SCH ×3 (08:00→23:08)
[2018-01-05] MEDS ORDERED: Chlorhexidine Gluconate 2% 1 Pack (2 Cloths) TOPICAL ONE (08:45)
[2018-01-05] MEDS ORDERED: Sodium Chlor 0.9% Inj 500 ML IV.CONT ONE (08:45)
--- NOTE | 2018-01-05 10:06 | GIPROC ---
[facility] [address] [facility]. [facility], [address] EGD PROCEDURE REPORT EXAM DATE: 01/05/2018 PATIENT NAME: Jeramie Barajas MR #: [id number] BIRTHDATE: 1955 ATTENDING: Josie Le MD ORDER #: [id number] CLINICAL UNIT EDUCATOR: Clari Guerra Stienbarger, Terrie, and Britni Malone STATUS: inpatient INDICATIONS: The patient is a 62 yr old male here for an EGD due to melena PROCEDURE PERFORMED: EGD w/ biopsy MEDICATIONS: Per Anesthesia and None. TOPICAL ANESTHETIC: none CONSENT: The patient understands the risks and benefits of the procedure and understands that these risks include, but are not limited to: sedation, allergic reaction, infection, perforation and/or bleeding. Alternative means of evaluation and treatment include, among others: physical exam, x-rays, and/or surgical intervention. The patient elects to proceed with this endoscopic procedure. medical equipment was checked for proper function. Hand hygiene and appropriate measures for infection prevention was taken. After the risks, benefits and alternatives of the procedure were thoroughly explained, Informed consent was verified, confirmed and timeout was successfully executed by the treatment team. The patient was anesthetized with topical anesthesia and the Pentax EG-[id number] endoscope was introduced through the mouth and advanced to the second portion of the duodenum. Retroflexion was performed The gastroscope was then slowly withdrawn and removed. STOMACH: The mucosa of the stomach appeared normal. DUODENUM: The duodenal mucosa appeared normal. ESOPHAGUS: Multiple large non-bleeding, irregular shaped, deep and clean-based ulcers with surrounding edema were found in the mid esophagus and distal esophagus. Biopsies were taken at the center of the ulcers and at edge of the ulcers. ADVERSE EVENTS: There were no complications. IMPRESSIONS: 1. The mucosa of the stomach appeared normal 2. Normal duodenal mucosa 3. Multiple large ulcers were found in the mid esophagus and distal esophagus; biopsies were taken 4. Retroflexion was performed RECOMMENDATIONS: 1. Await biopsy results. Biopsy results will not be ready for 7-10 days. If you don't hear from us in two weeks, call our office for biopsy results. 2. Continue PPI PATIENT CONDITION: stable DISPOSITION: Observation REPEAT EXAM: NONE Josie Le MD eSigned: Josie Le MD 01/05/2018 10:06 AM cc: PATIENT NAME: Jeramie Barajas MR#: [id number]
[2018-01-05] MEDS: Budesonide-Formoterol 160/4.5 MCG 6 GM Inhaler INH SCH ×3 (10:15→20:18)
[2018-01-05] MEDS ORDERED: fentaNYL Citrate Inj 100 MCG/2 ML Ampul ONE (10:17)
[2018-01-05] MEDS: oxyCODONE/Acetaminophen 10/325 Tablet PO PRN ×4 (10:54→23:18)
[2018-01-05] MEDS: Dextrose 5%/NaCl 0.45% Inj 1,000 ML IV.CONT SCH (11:44)
[2018-01-05] MEDS ORDERED: Heparin Central Flush 100 UNIT/ML 5 ML Vial IV.FLUSH ONE (12:30)
--- NOTE | 2018-01-05 14:01 | P.PN ---
Subjective Interval history: awake and alert very interactive and joking some black stools tolerated EGD Physical Exam Vital signs: Vital Signs 01/04/18 16:00 01/04/18 16:42 01/04/18 17:39 Temperature 99.1 F Pulse Rate 92 H 97 H 77 Respiratory Rate 18 16 Blood Pressure 92/59 L Pulse Oximetry 97 01/04/18 19:43 01/04/18 20:00 01/04/18 20:28 Temperature 98.1 F Pulse Rate 102 H 96 H 100 H Respiratory Rate 20 16 Blood Pressure 95/55 L Pulse Oximetry 97 97 01/05/18 00:00 01/05/18 04:00 01/05/18 04:07 Temperature 97.7 F 98.5 F Pulse Rate 95 H 98 H 80 Respiratory Rate 16 16 Blood Pressure 96/69 L 103/69 Pulse Oximetry 94 L 90 L 01/05/18 07:00 01/05/18 07:56 01/05/18 07:57 Temperature Pulse Rate 84 94 H Respiratory Rate 18 Blood Pressure Pulse Oximetry 98 01/05/18 08:00 01/05/18 10:15 01/05/18 11:08 Temperature 99.7 F H 99.3 F Pulse Rate 94 H 96 H 92 H Respiratory Rate 18 18 18 Blood Pressure 95/64 L 95/63 L Pulse Oximetry 93 L 98 01/05/18 11:45 Temperature 98.4 F Pulse Rate 95 H Respiratory Rate 18 Blood Pressure 101/68 Pulse Oximetry 96 Intake & Output 01/04/18 01/05/18 01/05/18 18:59 06:59 18:59 Intake Total 1100 / 1100 1820 / 1820 1400 / 1400 Output Total 2525 / 2525 Balance 1100 / 1100 -705 / -705 1400 / 1400 Intake: IV 1100 / 1100 1100 / 1100 1200 / 1200 D5W/1/2 NS Inj 1,000 ML @ 100 1000 / 1000 1000 / 1000 1000 / 1000 mls/hr IV.CONT .Q10H SAYRA Rx#: [id number] LR 1000 mL Inj 1,000 ML @ 30 200 / 200 mls/hr IV.CONT .Q24H ONE Rx#: [id number] Protonix Inj 80 MG In NS Inj 100 / 100 100 / 100 100 ML @ 10 mls/hr IV.CONT CONT SAYRA Rx#:[id number] Oral 720 / 720 Anesthesia Amount 200 / 200 Output: Urine 2525 / 2525 Other: Date of Last Bowel Movement 01/04/18 01/04/18 01/04/18 # Bowel Movements 1 Narrative: GENERAL: NAD, A&Ox3 HEAD: Normocephalic. NECK: Supple EYES: No scleral icterus. No injection or drainage. CARDIOVASCULAR: irregular rhythm gallops, or rubs. RESPIRATORY: Breath sounds equal bilaterally. No accessory muscle use. GASTROINTESTINAL: Abdomen soft, non-tender, nondistended. MUSCULOSKELETAL: No cyanosis, or edema. SKIN: Warm and dry. NEURO: No focal neurological deficits. Results - Labs CBC & Chem 7: 01/05/18 04:40 01/03/18 06:00 Laboratory Results - last 24 hr 01/04/18 01/04/18 01/05/18 14:40 20:00 04:40 WBC 9.9 9.2 RBC 2.34 L 2.39 L Hgb 7.8 L 8.0 L Hct 23.1 L 23.0 L MCV 99.0 96.3 MCH 33.2 33.6 MCHC 33.6 34.9 RDW 15.6 15.6 Plt Count 201 155 MPV 7.3 8.2 Neut % (Auto) 85.4 H 80.2 H Lymph % (Auto) 2.7 L 2.8 L [place] % (Auto) 11.2 H 15.1 H Eos % (Auto) 0.5 1.2 Baso % (Auto) 0.2 0.7 Neut # (Auto) 8.5 H 7.4 Lymph # (Auto) 0.3 L 0.3 L [place] # (Auto) 1.1 H 1.4 H Eos # (Auto) 0.0 0.1 Baso # (Auto) 0.0 0.1 WBC Differential . . Differential Comment Auto diff final Auto diff final Iron 16 L TIBC 160 L % Saturation 10.0 L Ferritin 01/05/18 13:00 WBC RBC Hgb Hct MCV MCH MCHC RDW Plt Count MPV Neut % (Auto) Lymph % (Auto) [place] % (Auto) Eos % (Auto) Baso % (Auto) Neut # (Auto) Lymph # (Auto) Iron # (Auto) Eos # (Auto) Baso # (Auto) WBC Differential Differential Comment Iron TIBC % Saturation Ferritin 389 H - Procedures 12/09- EGD- large multiple gastric ulcers Assessment and Plan - Assessment (1) 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 Code(s): C34.91 - Malignant neoplasm of unspecified part of right bronchus or lung; C78.7 - Secondary malignant neoplasm of liver and intrahepatic bile duct Status: Acute - Plan 62-year-old male admitted secondary to acute GI bleed, shortness of breath, and esophageal cancer at baseline Melena - EGD done today 01/05 - multiple large ulcers - non bleeding Likely related to upper GI bleed Likely related to esophageal cancer Patient was also on Eliquis at baseline for PE/A. fib, Elequis now on hold Eliquis has been stopped and GI is following. Continue Protonix GI following advance diet to soft will d/w Hematology- Sudeep Bernard- regarding restarting OAC- timing and choice Gastroesophageal adenocarcinoma Abdominal pain- exam benign Metastatic esophageal cancer, status post Cyramza 2 weeks ago. Patient has poor performance status and will be unable to tolerate further chemotherapy. He will receive supportive care only from oncology.Heme oncology following Ileus- resolved - on clears- toelrating- advance to soft diet History of Pulmonary embolism CTA- negative for PE- this admission Eliquis on hold for now Follow clinically Chronic hypoxic respiratory failure- no distress COPD- 02 dependent Continue oxygen supplementation Follow oxygen levels per - theyjust change insurance- and [place] wants another test to provdie for continuous home 02 Hyperlipidemia Continue present treatment Follow as an outpatient Atrial fibrillation- intermittent- now on telemetry- a fib- rate controlled- Continue atenolol Continue Cardizem Eliquis on hold Right lower extremity weakness- strong today MRI of brain unremarkable Evaluation for metastatic disease as etiology Low BMI Calorie deficit malnutrition Related to cancer Related to esophageal mass Pericardial effusion May be related to cancer Follow clinically No evidence of tamponade at this point DVT prophylaxis SCDs Anticoagulation contraindicated Anxiety - Ativan 0.5 mg every 6 as needed anxiety. Patient and aware of possible complications, which include respiratory depression./Oncology encoruage increase activity- up and ambualte d/w Dr. Sheets- re: initiation of OAC /choice with history of recent PE and paroxsymal a fib restart Eliquis 5 mg bid d/w patient- above- rsiks and benefits - will start tonight and montior while here
[2018-01-05] MEDS ORDERED: Morphine Sulfate Inj 2 MG/ML Vial IV.PUSH PRN (15:00)
--- NOTE | 2018-01-05 15:47 | MB ---
cc: Ok Sanders MD DATE: 01/05/2018 DATE OF SERVICE: 01/05/2018. HISTORY OF PRESENT ILLNESS: Mr. Barajas is seen in room 237 in followup. He continues to do generally well except for chronic fatigue. He wants to go home. He is status post EGD and has no active bleeding, no nausea, vomiting, hematemesis, blood in the stool or black stools. No cough, chest pain, or shortness of breath. No abdominal pain or distention. No fevers or night sweats. REVIEW OF SYSTEMS: As above. PHYSICAL EXAMINATION: GENERAL: On exam, chronically ill-appearing, in no acute distress. Weight loss noted. Pallor present. No icterus. No lymphadenopathy in the neck or axilla. Alert and oriented x4. HEENT: Without oropharyngeal lesions. LUNGS: Clear to auscultation. ABDOMEN: Soft, without palpable organomegaly. EXTREMITIES: No edema. EGD findings noted. LABORATORY DATA: Reviewed. Case discussed with hospitalist. IMPRESSION: Metastatic esophageal cancer to , developed gastrointestinal bleed. No evidence of gastrointestinal perforation. EGD showed large ulcers in the mid and lower esophagus. Biopsies taken, results pending. Possibly related to radiation versus recurrence of tumor, which is unlikely. Biopsy will confirm that. He may be discharged over the weekend. PLAN: I will see him in follow up in the office in 2 weeks with repeat CBC and iron studies and will take it from there. He may not be a candidate for further systemic therapy for his metastatic esophageal cancer. The patient's is aware of that. Ok Sanders MD [facility]/ , 03:28 PM , 03:35 PM
--- NOTE | 2018-01-05 16:24 | P.DCO ---
- Diagnosis (1) Acute GI bleeding Status: Acute - Physical Therapy Order: Evaluate and treat, Strength and gait training - Occupational Therapy Order: Evaluate and treat - Home Health Nursing Order: Medical education, Signs/symptoms of disease process, Oxygen administration education, Nursing assessment with vital signs - Operations Business Partner Order: To evaluate: Support services - Case Management Consult Case Management Consult-Home Health: Yes - Certification I have seen patient Jeramie Barajas on 01/05/18. My clinical findings support the need for the requested home health care services because: Limited mobility due to disease progression, Limited ability to care for self I certify that my clinical findings support that this patient is homebound because: Post-op weakness, Hx COPD - exertion dyspnea/weakness, Need for psychosocial assistance
[2018-01-05] MEDS: Montelukast 10 MG Tablet PO SCH (18:13)
[2018-01-05] MEDS: dilTIAZem CD 120 MG Capsule PO SCH (19:45)
[2018-01-05] MEDS: Tiotropium Bromide 18 MCG/ACT Inhaler INH SCH (19:51)
[2018-01-05] MEDS: Ferrous Sulfate 325 MG Tablet PO SCH (20:16)
[2018-01-06] MEDS: oxyCODONE/Acetaminophen 10/325 Tablet PO PRN ×2 (05:09→09:06)
[2018-01-06 05:59] LABS: Baso # (Auto) 0.1 th/mm3 (0.0-0.2); Baso % (Auto) 0.8 % (0.0-2.0); Eos # (Auto) 0.1 th/mm3 (0.0-0.4); Eos % (Auto) 1.6 % (0.0-4.0); Hematocrit 23.7 % (39.0-51.0); Hemoglobin 8.1 gm/dL (13.0-17.0); Lymph # (Auto) 0.3 th/mm3 (1.0-4.8); Lymph % (Auto) 3.4 % (9.0-44.0); Mean Corpuscular HGB Conc 34.1 % (32.0-36.0); Mean Corpuscular Hemoglobin 32.7 pg (27.0-34.0); Mean Corpuscular Volume 95.8 fL (80.0-100.0); Mean Platelet Volume 8.1 fL (7.0-11.0); Mono # (Auto) 1.2 th/mm3 (0.0-0.9); Mono % (Auto) 14.5 % (0.0-8.0); Neut # (Auto) 6.4 th/mm3 (1.8-7.7); Neut % (Auto) 79.7 % (16.0-70.0); Platelet Count 214 th/mm3 (150-450); Red Blood Count 2.48 mil/mm3 (4.50-5.90); Red Cell Distribution Width 15.6 % (11.6-17.2)
[2018-01-06] MEDS: Senna/Docusate Sodium 8.6/50 MG Tablet PO SCH (08:03)
[2018-01-06] MEDS: Ferrous Sulfate 325 MG Tablet PO SCH (08:03)
[2018-01-06] MEDS: Metoprolol Tartrate 25 MG Tablet PO SCH (08:03)
[2018-01-06] MEDS: Budesonide-Formoterol 160/4.5 MCG 6 GM Inhaler INH SCH (08:06)
--- NOTE | 2018-01-06 08:19 | P.PN ---
Subjective Interval history: awake and alert no pain swallowing well- as much as I can no bleeding no nausea or vomting telemetry- in SR this am Physical Exam Vital signs: Vital Signs 01/05/18 10:15 01/05/18 11:00 01/05/18 11:08 Temperature 99.3 F Pulse Rate 96 H 100 H 92 H Respiratory Rate 18 18 Blood Pressure 95/63 L Pulse Oximetry 98 Pulse Oximetry [Exertion on Room Air] Pulse Oximetry [Resting with Oxygen] 01/05/18 11:45 01/05/18 15:31 01/05/18 16:00 Temperature 98.4 F Pulse Rate 95 H 116 H 96 H Respiratory Rate 18 20 Blood Pressure 101/68 Pulse Oximetry 96 Pulse Oximetry [Exertion on Room Air] 87 L Pulse Oximetry [Resting with Oxygen] 98 01/05/18 19:40 01/05/18 20:05 01/05/18 22:04 Temperature 98.5 F Pulse Rate 98 H 101 H 98 H Respiratory Rate 18 16 Blood Pressure 96/76 L Pulse Oximetry 97 93 L Pulse Oximetry [Exertion on Room Air] Pulse Oximetry [Resting with Oxygen] 01/05/18 23:00 01/05/18 23:06 01/06/18 03:00 Temperature 97.5 F L Pulse Rate 82 99 H 82 Respiratory Rate 18 Blood Pressure 93/69 L Pulse Oximetry 97 Pulse Oximetry [Exertion on Room Air] Pulse Oximetry [Resting with Oxygen] 01/06/18 04:00 01/06/18 05:26 01/06/18 07:45 Temperature 98.0 F 97.8 F Pulse Rate 98 H 97 H 82 Respiratory Rate 18 16 18 Blood Pressure 100/64 100/70 Pulse Oximetry 98 100 Pulse Oximetry [Exertion on Room Air] Pulse Oximetry [Resting with Oxygen] Intake & Output 01/05/18 01/06/18 01/06/18 18:59 06:59 18:59 Intake Total 1640 / 1640 240 / 240 Output Total 900 / 900 875 / 875 Balance 740 / 740 -635 / -635 Weight 51.4 kg Intake: IV 1200 / 1200 D5W/1/2 NS Inj 1,000 ML @ 100 1000 / 1000 mls/hr IV.CONT .Q10H SAYRA Rx#: [id number] LR 1000 mL Inj 1,000 ML @ 30 200 / 200 mls/hr IV.CONT .Q24H ONE Rx#: [id number] Oral Supplement 240 / 240 240 / 240 Anesthesia Amount 200 / 200 Output: Urine 900 / 900 875 / 875 Other: Date of Last Bowel Movement 01/04/18 01/04/18 Narrative: GENERAL: NAD, A&Ox3 HEAD: Normocephalic. NECK: Supple EYES: No scleral icterus. No injection or drainage. CARDIOVASCULAR: irregular rhythm gallops, or rubs. RESPIRATORY: Breath sounds equal bilaterally. No accessory muscle use. GASTROINTESTINAL: Abdomen soft, non-tender, nondistended. MUSCULOSKELETAL: No cyanosis, or edema. SKIN: Warm and dry. NEURO: No focal neurological deficits. Results - Labs CBC & Chem 7: 01/06/18 05:30 01/03/18 06:00 Laboratory Results - last 24 hr 01/05/18 01/06/18 13:00 05:30 WBC 8.0 RBC 2.48 L Hgb 8.1 L Hct 23.7 L MCV 95.8 MCH 32.7 MCHC 34.1 RDW 15.6 Plt Count 214 D MPV 8.1 Neut % (Auto) 79.7 H Lymph % (Auto) 3.4 L [place] % (Auto) 14.5 H Eos % (Auto) 1.6 Baso % (Auto) 0.8 Neut # (Auto) 6.4 Lymph # (Auto) 0.3 L [place] # (Auto) 1.2 H Eos # (Auto) 0.1 Baso # (Auto) 0.1 WBC Differential . 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 fib, Elequis now on hold Eliquis has been stopped and GI is following. Continue Protonix GI following advance diet to soft will d/w Hematology- Sudeep Bernard- 01/05- started Eliquis Gastroesophageal adenocarcinoma Abdominal pain- exam benign Metastatic esophageal cancer, status post Cyramza 2 weeks ago. Patient has poor performance status and will be unable to tolerate further chemotherapy. He will receive supportive care only from oncology.Heme oncology following Ileus- resolved - on clears- toelrating- advance to soft diet History of Pulmonary embolism CTA- negative for PE- this admission Eliquis on hold for now Follow clinically Chronic hypoxic respiratory failure- no distress COPD- 02 dependent Continue oxygen supplementation Follow oxygen levels per - theyjust change insurance- and [place] wants another test to [place] for continuous home 02 Hyperlipidemia Continue present treatment Follow as an outpatient paroxysmal Atrial fibrillation-- this am- sinus Continue atenolol Continue Cardizem Eliquis restarted last evening H and H stable Right lower extremity weakness- strong today MRI of brain unremarkable Evaluation for metastatic disease as etiology- OP Low BMI Calorie deficit malnutrition Related to cancer Related to esophageal mass Pericardial effusion May be related to cancer Follow clinically No evidence of tamponade at this point DVT prophylaxis SCDs Anticoagulation contraindicated Anxiety - Ativan 0.5 mg every 6 as needed anxiety. Patient and aware of possible complications, which include respiratory depression./Oncology encoruage increase activity- up and ambualte 01/05 d/w Dr. Sheets- re: initiation of OAC /choice with history of recent PE and paroxsymal a fib restart Eliquis 5 mg bid d/w patient- above- rsiks and benefits - will start tonight and montior while here DC home today with [facility] OP ff up with PCP early next week- Dr. durham- instruct patient to call OP ff up with IOncology Dr Sheets in1-2 weeks- instruct patient to call for appt
--- NOTE | 2018-01-06 08:28 | P.DS ---
Date of admission: 01/01/18 16:30 Primary care physician: Annamarie Epps DO Anticipated date of discharge: 01/06/18 Brief History from admission: 62-year-old gentleman presents with black stools that started at midnight. He denies history of GI bleed. He has been on Eliquis for 2 months for recent diagnosis of pulmonary embolism, he is on chemo and radiation for metastatic esophageal cancer. He has been having chronic upper abd pain due to his cancer since he started chemo. He also states he has not eaten for 3 days due to nausea, he denies vomiting, fever or abnormal bowel movements prior to last night. Patient update on day of discharge: awake and alert no difficulty swallowing tno shrtness of breath,. 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 Status: Acute DS: Medications - Discharge Medications Prescriptions: albuterol sulfate [Ventolin HFA] 2 puff INH Q4H PRN #1 g PRN Reason: Shortness Of Breath ferrous sulfate [FeroSul] 325 mg PO BID #60 tab lactulose 30 ml PO DAILY PRN #1 ml PRN Reason: Severe Consitipation DS: Summary Hospital Course: 62-year-old male admitted secondary to acute GI bleed, shortness of breath, and esophageal cancer at baseline Melena - EGD done today 01/05 - multiple large ulcers - non bleeding Likely related to upper GI bleed Likely related to esophageal cancer Patient was also on Eliquis at baseline for PE/A. fib, Elequis now on hold Eliquis has been stopped and GI is following. Continue Protonix GI following advance diet to soft will d/w Hematology- Sudeep Bernard- 01/05- started Eliquis Gastroesophageal adenocarcinoma Abdominal pain- exam benign Metastatic esophageal cancer, status post Cyramza 2 weeks ago. Patient has poor performance status and will be unable to tolerate further chemotherapy. He will receive supportive care only from oncology.Heme oncology following Ileus- resolved - on clears- toelrating- advance to soft diet History of Pulmonary embolism CTA- negative for PE- this admission Eliquis on hold for now Follow clinically Chronic hypoxic respiratory failure- no distress COPD- 02 dependent Continue oxygen supplementation Follow oxygen levels per - theyjust change insurance- and [place] wants another test to [place] for continuous home 02 Hyperlipidemia Continue present treatment Follow as an outpatient paroxysmal Atrial fibrillation-- this am- sinus Continue atenolol Continue Cardizem Eliquis restarted last evening H and H stable Right lower extremity weakness- strong today MRI of brain unremarkable Evaluation for metastatic disease as etiology- OP Low BMI Calorie deficit malnutrition Related to cancer Related to esophageal mass Pericardial effusion May be related to cancer Follow clinically No evidence of tamponade at this point DVT prophylaxis SCDs Anticoagulation contraindicated Anxiety - Ativan 0.5 mg every 6 as needed anxiety. Patient and aware of possible complications, which include respiratory depression./Oncology encoruage increase activity- up and ambualte 01/05 d/w Dr. Sheets- re: initiation of OAC /choice with history of recent PE and paroxsymal a fib restart Eliquis 5 mg bid d/w patient- above- rsiks and benefits - will start tonight and montior while here DC home today with [facility] OP ff up with PCP early next week- Dr. durham- instruct patient to call OP ff up with IOncology Dr Sheets in1-2 weeks- instruct patient to call for appt ADD- per Hematology notes- restart Elkuqis at 2.5 mg po bid spoke with pharmacist OP- to decrease to 2.5 mg po bid- patient has home meds at home- Ramakrishna Hodge to give patient instructions - Time Spent with Patient Total time spent providing and/or coordinating discharge services: Greater than 30 minutes - Quality: VTE Deep Vein Thrombosis/Pulmonary Embolism Present on Admission: No Exam Vital signs: Vital Signs 01/05/18 10:15 01/05/18 11:00 01/05/18 11:08 Temperature 99.3 F Pulse Rate 96 H 100 H 92 H Respiratory Rate 18 18 Blood Pressure 95/63 L Pulse Oximetry 98 Pulse Oximetry [Exertion on Room Air] Pulse Oximetry [Resting with Oxygen] 01/05/18 11:45 01/05/18 15:31 01/05/18 16:00 Temperature 98.4 F Pulse Rate 95 H 116 H 96 H Respiratory Rate 18 20 Blood Pressure 101/68 Pulse Oximetry 96 Pulse Oximetry [Exertion on Room Air] 87 L Pulse Oximetry [Resting with Oxygen] 98 01/05/18 19:40 01/05/18 20:05 01/05/18 22:04 Temperature 98.5 F Pulse Rate 98 H 101 H 98 H Respiratory Rate 18 16 Blood Pressure 96/76 L Pulse Oximetry 97 93 L Pulse Oximetry [Exertion on Room Air] Pulse Oximetry [Resting with Oxygen] 01/05/18 23:00 01/05/18 23:06 01/06/18 03:00 Temperature 97.5 F L Pulse Rate 82 99 H 82 Respiratory Rate 18 Blood Pressure 93/69 L Pulse Oximetry 97 Pulse Oximetry [Exertion on Room Air] Pulse Oximetry [Resting with Oxygen] 01/06/18 04:00 01/06/18 05:26 01/06/18 07:45 Temperature 98.0 F 97.8 F Pulse Rate 98 H 97 H 82 Respiratory Rate 18 16 18 Blood Pressure 100/64 100/70 Pulse Oximetry 98 100 Pulse Oximetry [Exertion on Room Air] Pulse Oximetry [Resting with Oxygen] Intake & Output 01/05/18 01/06/18 01/06/18 18:59 06:59 18:59 Intake Total 1640 / 1640 240 / 240 Output Total 900 / 900 875 / 875 Balance 740 / 740 -635 / -635 Weight 51.4 kg Intake: IV 1200 / 1200 D5W/1/2 NS Inj 1,000 ML @ 100 1000 / 1000 mls/hr IV.CONT .Q10H SAYRA Rx#: [id number] LR 1000 mL Inj 1,000 ML @ 30 200 / 200 mls/hr IV.CONT .Q24H ONE Rx#: [id number] Oral Supplement 240 / 240 240 / 240 Anesthesia Amount 200 / 200 Output: Urine 900 / 900 875 / 875 Other: Date of Last Bowel Movement 01/04/18 01/04/18 Narrative: GENERAL: NAD, A&Ox3 HEAD: Normocephalic. NECK: Supple EYES: No scleral icterus. No injection or drainage. CARDIOVASCULAR: irregular rhythm gallops, or rubs. RESPIRATORY: Breath sounds equal bilaterally. No accessory muscle use. GASTROINTESTINAL: Abdomen soft, non-tender, nondistended. MUSCULOSKELETAL: No cyanosis, or edema. SKIN: Warm and dry. NEURO: No focal neurological deficits. Results Procedures completed during hospitalization: 12/09- EGD- large multiple gastric ulcers Pending studies at discharge: Pending at discharge 01/05/18 13:27 Surgical [PTH] Routine Labs on day of discharge: Labs from last 24 hours 01/06/18 01/05/18 05:30 13:00 WBC 8.0 RBC 2.48 L Hgb 8.1 L Hct 23.7 L MCV 95.8 MCH 32.7 MCHC 34.1 RDW 15.6 Plt Count 214 D MPV 8.1 Neut % (Auto) 79.7 H Lymph % (Auto) 3.4 L [place] % (Auto) 14.5 H Eos % (Auto) 1.6 Baso % (Auto) 0.8 Neut # (Auto) 6.4 Lymph # (Auto) 0.3 L [place]ine # (Auto) 1.2 H Eos # (Auto) 0.1 Baso # (Auto) 0.1 WBC Differential . Differential Comment Auto diff final Ferritin 389 H - Impressions ITS Impressions Abdomen/Pelvis CT 01/01/18 14:23 CONCLUSION: 1. Low density liver lesions which were not identified previously 2. Ileus bowel gas pattern Chest X-Ray 01/01/18 14:24 CONCLUSION: New areas of infiltrate in the lung bases when compared to previous of 2017. This would be concerning for pneumonia. Chest CTA 01/01/18 14:45 CONCLUSION: 1. No CT evidence for pulmonary artery embolism as questioned. 2. Postsurgical features of prior right lobectomy with associated volume loss and mediastinal shift to the right. 3. Prominent centrilobular emphysema throughout the left lung and residual right lung. 4. Stable large cavitary lesion in the right lung apex with slightly improved peripheral lateral pleural-based mass in the right midlung measuring 4.3 x 1.4 cm. 5. New posterior pleural-based right lower lobe mass measuring 2.8 x 1.7 cm. 6. Enlarging primarily anterior pericardial effusion now measuring 1.9 cm. Head MRI 01/02/18 00:00 CONCLUSION: Scattered probably benign white matter signal changes. No evidence of acute process or metastatic disease. Discharge Plan - Discharge Disposition Patient Disposition: W/Home Health Service - Discharge Condition Condition: Stable - Discharge Order Discharge Orders: Discharge Order (Routine); Ordered 01/06/18 Ordered By: Stacie Fonseca - Physicians Team Primary Care Provider: Annamarie Epps Attending Provider: Stacie Fonseca Other Providers: Josie Le MD ; Ok Sanders MD
[2018-01-06] MEDS: Dextrose 5%/NaCl 0.45% Inj 1,000 ML IV.CONT SCH (10:07)
--- NOTE | 2018-01-06 10:27 | P.PNONC ---
Subjective Interval history: Afebrile Patient looking forward to being discharged today Still has abdominal pain but no more obvious GI bleeding No other acute complaints Objective Vital Signs/Intake & Output: Vital Signs 01/05/18 11:00 01/05/18 11:08 01/05/18 11:45 Temperature 98.4 F Pulse Rate 100 H 92 H 95 H Respiratory Rate 18 18 Blood Pressure 101/68 Pulse Oximetry 96 Pulse Oximetry [Exertion on Room Air] Pulse Oximetry [Resting with Oxygen] 01/05/18 15:31 01/05/18 16:00 01/05/18 19:40 Temperature 98.5 F Pulse Rate 116 H 96 H 98 H Respiratory Rate 20 18 Blood Pressure 96/76 L Pulse Oximetry 97 Pulse Oximetry [Exertion on Room Air] 87 L Pulse Oximetry [Resting with Oxygen] 98 01/05/18 20:05 01/05/18 22:04 01/05/18 23:00 Temperature Pulse Rate 101 H 98 H 82 Respiratory Rate 16 Blood Pressure Pulse Oximetry 93 L Pulse Oximetry [Exertion on Room Air] Pulse Oximetry [Resting with Oxygen] 01/05/18 23:06 01/06/18 03:00 01/06/18 04:00 Temperature 97.5 F L 98.0 F Pulse Rate 99 H 82 98 H Respiratory Rate 18 18 Blood Pressure 93/69 L 100/64 Pulse Oximetry 97 98 Pulse Oximetry [Exertion on Room Air] Pulse Oximetry [Resting with Oxygen] 01/06/18 05:26 01/06/18 07:45 01/06/18 09:09 Temperature 97.8 F Pulse Rate 97 H 82 Respiratory Rate 16 18 Blood Pressure 100/70 Pulse Oximetry 100 98 Pulse Oximetry [Exertion on Room Air] Pulse Oximetry [Resting with Oxygen] Intake & Output 01/05/18 01/06/18 01/06/18 18:59 06:59 18:59 Intake Total 1640 / 1640 240 / 240 600 / 600 Output Total 900 / 900 875 / 875 Balance 740 / 740 -635 / -635 600 / 600 Weight 113 lb 5.082 oz Intake: IV 1200 / 1200 600 / 600 D5W/1/2 NS Inj 1,000 ML @ 100 1000 / 1000 mls/hr IV.CONT .Q10H SAYRA Rx#: [id number] LR 1000 mL Inj 1,000 ML @ 30 200 / 200 mls/hr IV.CONT .Q24H ONE Rx#: [id number] Oral Supplement 240 / 240 240 / 240 Anesthesia Amount 200 / 200 Output: Urine 900 / 900 875 / 875 Other: Date of Last Bowel Movement 01/04/18 01/04/18 Result Diagrams: 01/06/18 05:30 01/03/18 06:00 Laboratory Results: Laboratory Results - last 24 hr 01/05/18 01/06/18 13:00 05:30 WBC 8.0 RBC 2.48 L Hgb 8.1 L Hct 23.7 L MCV 95.8 MCH 32.7 MCHC 34.1 RDW 15.6 Plt Count 214 D MPV 8.1 Neut % (Auto) 79.7 H Lymph % (Auto) 3.4 L [place] % (Auto) 14.5 H Eos % (Auto) 1.6 Baso % (Auto) 0.8 Neut # (Auto) 6.4 Lymph # (Auto) 0.3 L [place] # (Auto) 1.2 H Eos # (Auto) 0.1 Baso # (Auto) 0.1 WBC Differential . Differential Comment Auto diff final Ferritin 389 H Medications: Active Medications Generic Name Dose Route Start Last Admin Trade Name Freq PRN Reason Stop Dose Admin Albuterol 1 ampul 01/03/18 11:50 01/06/18 05:24 Duoneb Neb (Prn) NEB 1 ampul Q2HR NEB PRN Administration SHORTNESS OF BREATH Apixaban 5 mg 01/05/18 21:00 01/06/18 08:03 Eliquis PO 5 mg BID SAYRA Administration Atorvastatin Calcium 40 mg 01/01/18 20:00 01/05/18 18:13 Lipitor PO 40 mg QPM SAYRA Administration Budesonide/Formoterol Fumarate 2 puff 01/01/18 21:00 01/06/18 08:06 Symbicort 160/4.5 Mcg Inh INH 2 puff BID SYARA Administration Diltiazem HCl 120 mg 01/01/18 20:00 01/05/18 19:45 Cardizem Cd 24hr PO 120 mg Q24H SAYRA Administration Ferrous Sulfate 325 mg 01/05/18 21:00 01/06/18 08:03 Ferosul PO 325 mg BID SAYRA Administration Metoprolol Tartrate 25 mg 01/01/18 21:00 01/06/18 08:03 Lopressor PO 25 mg BID SAYRA Administration Montelukast Sodium 10 mg 01/02/18 20:00 01/05/18 18:13 Singulair PO 10 mg QPM SAYRA Administration Multivitamins 1 tab 01/02/18 09:00 01/06/18 08:03 Theragran PO 1 tab DAILY SAYRA Administration Oxycodone/Acetaminophen 1 tab 01/01/18 18:27 01/06/18 09:06 Percocet 10/325 Mg PO 1 tab Q4H PRN Administration Pain 1-10 Pantoprazole Sodium 40 mg 01/05/18 21:00 01/06/18 08:03 Protonix PO 40 mg BID SAYRA Administration Senna/Docusate Sodium 1 tab 01/01/18 21:00 01/06/18 08:03 Jammie-Colace PO 1 tab BID SAYRA Administration Tiotropium [place] 18 mcg 01/01/18 20:00 01/05/18 19:51 Spiriva 18 Mcg Inh INH 18 mcg Q24H SAYRA Administration Vitamin D 4,000 unit 01/01/18 20:00 01/05/18 19:51 Vitamin D3 PO 4,000 unit Q24H SAYRA Administration Objective Remarks: GENERAL: Cachectic, ill-appearing gentleman, in no acute distress. SKIN: Warm and dry. HEAD: Normocephalic. EYES: No scleral icterus. No injection or drainage. NECK: Supple, trachea midline. CARDIOVASCULAR: Regular rate and rhythm without murmurs. RESPIRATORY: Clear but diminished anteriorly. No accessory muscle use. GASTROINTESTINAL: Abdomen soft, tender upper quadrants, nondistended, mild guarding. EXTREMITIES: No cyanosis, or edema. MUSCULOSKELETAL: + Muscle wasting. NEUROLOGICAL: No obvious focal deficit. Awake, alert, and oriented x3. Assessment/Plan - Plan Mr. Barajas is a 62-year-old gentleman with metastatic esophageal cancer, being treated with ramucirumab 2 weeks ago. Currently hospitalized for GI bleed. Patient was on Eliquis for pulmonary embolism for the last 2 months. Recommendations: 1. Metastatic esophageal cancer, status post Cyramza 2 weeks ago. Patient has poor performance status and will be unable to tolerate further chemotherapy. He will receive supportive care only from oncology. He will follow-up in clinic once discharged. 2. Patient recently had endoscopy on 11/30 that showed normal stomach and duodenum. Esophagus showed multiple large nonbleeding ulcers. He has history of recent pulmonary embolism and has been on Eliquis. I have recommended that when his anticoagulant is restarted that he take 2.5 mg twice daily and follow- up to make sure his hemoglobin is maintaining. 3. Discussed with patient to follow-up with Dr. Sanders in the outpatient clinic next week.
== END 2018-01-06 11:00 | disposition home health service (06) ==
LOC: NEPE 13:21 → NEDA 16:30 → NEPGCP 18:01 → HCIN 01-03 02:22
PROVIDERS: ADMIT Internal Medicine; ATTEND Internal Medicine
PROC: PANENDO (2018-01-05 09:44)
DX: I10 Essential (primary) hypertension; F41.9 Anxiety disorder, unspecified; Z91.81 History of falling; Z87.891 Personal history of nicotine dependence; C78.01 Secondary malignant neoplasm of right lung; E43 Unspecified severe protein-calorie malnutrition; K22.11 Ulcer of esophagus with bleeding; I31.3 Pericardial effusion (noninflammatory); J43.2 Centrilobular emphysema; Z88.1 Allergy status to other antibiotic agents; Z68.1 Body mass index [BMI] 19.9 or less, adult; D64.81 Anemia due to antineoplastic chemotherapy; C16.0 Malignant neoplasm of cardia; E78.5 Hyperlipidemia, unspecified; C78.7 Secondary malignant neoplasm of liver and intrahepatic bile duct; T45.1X5A Adverse effect of antineoplastic and immunosuppressive drugs, initial encounter; Z99.81 Dependence on supplemental oxygen; J96.11 Chronic respiratory failure with hypoxia; Z86.711 Personal history of pulmonary embolism; Z86.718 Personal history of other venous thrombosis and embolism; I48.0 Paroxysmal atrial fibrillation; Z90.2 Acquired absence of lung [part of]; Z93.4 Other artificial openings of gastrointestinal tract status; Z79.01 Long term (current) use of anticoagulants; K56.7 Ileus, unspecified; E86.0 Dehydration